=== PATIENT | male | born 1990 | race Caucasian/White ===

== ENCOUNTER 2018-08-11 21:38 | Emergency (ER) | payer SELFPAY ==
[~2018-08-11] VITALS: Ht 175.3 cm; Wt 163.3 kg
[2018-08-11] MEDS ORDERED: NS IV 1000 ML 1,000 ML IV ONE (22:49)
[2018-08-11] MEDS ORDERED: ACETAMINOPHEN 500 MG TAB (TYLENOL) PO STA (22:49)
[2018-08-11] MEDS ORDERED: HYDROcodone/APAP 7.5 MG/325 MG (LORTAB, LORCET PLUS) TABLET PO STA (22:49)
[2018-08-11 23:08] LABS: BASOPHILS % (AUTO) 0 % (0-10); EOSINOPHILS # (AUTO) 0.2 10^3/uL (0.0-0.3); EOSINOPHILS % (AUTO) 2 % (0-10); HEMATOCRIT 41 % (40-54); HEMOGLOBIN 12.4 G/DL (13.3-17.7); LYMPHOCYTES # (AUTO) 1.5 X 10^3 (1.0-4.0); LYMPHOCYTES % (AUTO) 14 % (12-44); MEAN CORPUSCULAR HEMOGLOBIN 23 PG (25-34); MEAN CORPUSCULAR HGB CONC 31 G/DL (32-36); MEAN CORPUSCULAR VOLUME 76 FL (80-99); MEAN PLATELET VOLUME 11.2 FL (7.4-10.4); MONOCYTES % (AUTO) 9 % (0-12); NEUTROPHILS # (AUTO) 7.9 X 10^3 (1.8-7.8); NEUTROPHILS % (AUTO) 74 % (42-75); PLATELET COUNT 290 10^3/uL (130-400); RED BLOOD COUNT 5.37 10^6/uL (4.35-5.85); RED CELL DISTRIBUTION WIDTH 15.4 % (10.0-14.5); WHITE BLOOD COUNT 10.6 10^3/uL (4.3-11.0)
--- NOTE | 2018-08-11 23:15 | ED General ---
General Chief Complaint: General Problems/Pain Stated Complaint: FELL AT HOME, LEGS HURTING Nursing Triage Note: Pt brought to ED in wheelchair. Pt reports slipping when getting out of the shower tonight and hitting middle of back on a shelf and toilet. Pt reports numbness and tingling from waist radiating down both knees. Pt denies urinary or bowel issues. During assessment this nurse noted pt has temperature of 101.1, and heart rate of 120. Nursing Sepsis Screen: No Definite Risk Source of Information: Patient Exam Limitations: No Limitations History of Present Illness Date Seen by Provider: Aug 11, 2018 Time Seen by Provider: 22:40 Initial Comments Here with report of multiple issues bed initial presenting complaint was that he had fallen after getting out of the shower and hit his back on the toilet. This is in the low thoracic upper lumbar region. States that he felt tingling down to his legs when that happened. That has happened intermittently since and was more often initially but now was settling down and only occurs sporadically every several minutes or so. On arrival, was found to be febrile and tachycardic and patient did not know that that was going on. He is a diabetic and currently is not on any meds as he has recently moved here and has reapplied for his Medicaid and so has not had any medicines. He is unsure what his blood sugars are. Denies numbness between his legs, bowel or bladder incontinence or difficulty with walking but does have some back spasms occasionally. Denies sore throat, runny nose, cough or vomiting. Location Injury Occurred: home Timing/Duration: 1 Hour (approximately one hour prior to arrival) Severity: Moderate Modifying Factors: improves with Rest Associated Systoms: No Chest Pain, No Cough, No Fever/Chills, No Nausea/ Vomiting, No Shortness of Air, No Weakness Allergies and Home Medications Allergies Coded Allergies: Penicillins (Verified Allergy, Unknown, 08/11/18) Patient Home Medication List Home Medication List Reviewed: Yes Review of Systems Review of Systems Constitutional: see HPI; No chills; fever EENTM: no symptoms reported Respiratory: no symptoms reported Cardiovascular: no symptoms reported; No chest pain Gastrointestinal: No abdominal pain, No nausea, No vomiting Genitourinary: no symptoms reported Musculoskeletal: back pain, muscle pain Psychiatric/Neurological: See HPI, Tingling; Denies Weakness All Other Systems Reviewed Negative Unless Noted: Yes Past Cptqhua-Mwxwjn-Votpsb Hx Past Med/Social Hx: Reviewed Nursing Past Med/Soc Hx Patient Social History Alcohol Use: Occasionally Uses Recreational Drug Use: No Smoking Status: Current Everyday Smoker Type Used: Cigarettes 2nd Hand Smoke Exposure: Yes Recent Foreign Travel: No Contact w/Someone Who Travel: No Recent Infectious Disease Expo: No Past Medical History Surgeries: No Respiratory: No Cardiac: No Neurological: No Genitourinary: No Gastrointestinal: No Musculoskeletal: No Endocrine: Yes Diabetes, Non-Insulin dep Family Medical History Reviewed Nursing Family Hx No Pertinent Family Hx Physical Exam Vital Signs Vital Signs - First Documented 08/11/18 22:16 Temp 101.1 Pulse 120 Resp 15 B/P (MAP) 148/112 (124) Pulse Ox 93 O2 Delivery Room Air Capillary Refill : Less Than 3 Seconds Height, Weight, BMI Height: 5'9.00" Weight: 360lbs. oz. 163.333824ww; BMI Method:Stated General Appearance: No Apparent Distress, WD/WN, Obese HEENT: PERRL/EOMI, Pharyngeal Erythema Neck: Full Range of Motion, Non Tender, Supple Respiratory: Lungs Clear, Normal Breath Sounds Cardiovascular: No Murmur, Tachycardia Gastrointestinal: Non Tender, Soft, Other (morbid obesity limits exam) Back: No CVA Tenderness, Other (tender in the area of the low thoracic spine. There is redness to this area. No obvious deformity) Extremity: Normal Inspection, Normal Range of Motion, Non Tender, No Calf Tenderness Neurologic/Psychiatric: Alert, Oriented x3, No Motor/Sensory Deficits, Other ( normal sensation to area between legs. Moves legs without difficulty. Gait is steady but limps a little with left leg reports that it's related to back pain) Skin: Warm/Dry, Erythema (lower thoracic as described above) Focused Exam Lactate Level 08/11/18 22:40: Lactic Acid Level 1.44 Lactic Acid Level Laboratory Tests Test 08/11/18 22:40 Lactic Acid Level 1.44 MMOL/L (0.50-2.00) Progress/Results/Core Measures Suspected Sepsis Recent Fever Within 48 Hours: Yes Infection Criteria Present: None New/Unexplained Altered Menta: No Sepsis Screen: No Definite Risk SIRS Temperature:101.1 Pulse: 120 Respiratory Rate: 15 Laboratory Tests 08/11/18 22:40: White Blood Count 10.6 Blood Pressure 148 /112 Mean: 124 08/11/18 22:40: Lactic Acid Level 1.44 Laboratory Tests 08/11/18 22:40: Creatinine 0.94, INR Comment 1.0, Platelet Count 290, Total Bilirubin 0.4 Results/Orders Lab Results Laboratory Tests Test 08/11/18 22:40 08/12/18 00:35 Range/Units White Blood Count 10.6 4.3-11.0 10^3/uL Red Blood Count 5.37 4.35-5.85 10^6/uL Hemoglobin 12.4 L 13.3-17.7 G/DL Hematocrit 41 40-54 % Mean Corpuscular Volume 76 L 80-99 FL Mean Corpuscular Hemoglobin 23 L 25-34 PG Mean Corpuscular Hemoglobin Concent 31 L 32-36 G/DL Red Cell Distribution Width 15.4 H 10.0-14.5 % Platelet Count 290 130-400 10^3/uL Mean Platelet Volume 11.2 H 7.4-10.4 FL Neutrophils (%) (Auto) 74 42-75 % Lymphocytes (%) (Auto) 14 12-44 % Monocytes (%) (Auto) 9 0-12 % Eosinophils (%) (Auto) 2 0-10 % Basophils (%) (Auto) 0 0-10 % Neutrophils # (Auto) 7.9 H 1.8-7.8 X 10^3 Lymphocytes # (Auto) 1.5 1.0-4.0 X 10^3 Monocytes # (Auto) 1.0 0.0-1.0 X 10^3 Eosinophils # (Auto) 0.2 0.0-0.3 10^3/uL Basophils # (Auto) 0.0 0.0-0.1 10^3/uL Prothrombin Time 13.4 12.2-14.7 SEC INR Comment 1.0 0.8-1.4 Activated Partial Thromboplast Time 28 24-35 SEC Sodium Level 134 L 135-145 MMOL/L Potassium Level 4.0 3.6-5.0 MMOL/L Chloride Level 97 L 98-107 MMOL/L Carbon Dioxide Level 27 21-32 MMOL/L Anion Gap 10 5-14 MMOL/L Blood Urea Nitrogen 9 7-18 MG/DL Creatinine 0.94 0.60-1.30 MG/DL Estimat Glomerular Filtration Rate > 60 BUN/Creatinine Ratio 10 Glucose Level 316 H 70-105 MG/DL Lactic Acid Level 1.44 0.50-2.00 MMOL/L Calcium Level 8.8 8.5-10.1 MG/DL Corrected Calcium 9.0 8.5-10.1 MG/DL Total Bilirubin 0.4 0.1-1.0 MG/DL Aspartate Amino Transf (AST/SGOT) 40 H 5-34 U/L Alanine Aminotransferase (ALT/SGPT) 54 0-55 U/L Alkaline Phosphatase 74 40-136 U/L Total Protein 7.3 6.4-8.2 GM/DL Albumin 3.7 3.2-4.5 GM/DL Urine Color YELLOW Urine Clarity CLEAR Urine pH 6 5-9 Urine Specific [place] 1.015 L 1.016-1.022 Urine Protein 2+ H NEGATIVE Urine Glucose (UA) 3+ H NEGATIVE Urine Ketones NEGATIVE NEGATIVE Urine Nitrite NEGATIVE NEGATIVE Urine Bilirubin NEGATIVE NEGATIVE Urine Urobilinogen 1 NORMAL MG/DL Urine Leukocyte Esterase 1+ H NEGATIVE Urine RBC (Auto) 1+ H NEGATIVE Urine RBC RARE /HPF Urine WBC 2-5 /HPF Urine Squamous Epithelial Cells 5-10 /HPF Urine Crystals NONE /LPF Urine Bacteria TRACE /HPF Urine Casts NONE /LPF Urine Mucus NEGATIVE /LPF Urine Culture Indicated NO My Orders Orders - AMBIKA WISEMAN MD Cbc With Automated Diff (08/11/18 22:49) Comprehensive Metabolic Panel (08/11/18 22:49) Blood Culture (08/11/18 22:49) Sputum Culture (08/11/18 22:49) Urinalysis (08/11/18 22:49) Urine Culture (08/11/18 22:49) Protime With Inr (08/11/18 22:49) Partial Thromboplastin Time (08/11/18 22:49) Chest 1 View, Ap/Pa Only (08/11/18 22:49) Saline Lock/Iv-Start (08/11/18 22:49) Vital Signs Adult Sepsis Patie Q15M (08/11/18 22:49) O2 (08/11/18 22:49) Remove Rings In Anticipation O (08/11/18 22:49) Lactic Acid Analyzer (08/11/18 22:49) Acetaminophen Tablet (Tylenol Tablet) (08/11/18 22:49) Hydrocodone/Apap 7.5/325 Tab (Lortab 7. (08/11/18 22:49) Ct Thoracic/Lumbar Spine Wo (08/11/18 22:49) Ns Iv 1000 Ml (Sodium Chloride 0.9%) (08/11/18 22:49) Metformin Xr Tablet (Glucophage Xr Table (08/12/18 00:58) Medications Given in ED Current Medications Medications Dose Ordered Sig/Felisha Route Start Time Stop Time Status Last Admin Dose Admin Sodium Chloride 1,000 ml @ 0 mls/hr Q0M ONCE IV 08/11/18 22:49 08/11/18 22:52 DC 08/11/18 23:16 0 MLS/HR Vital Signs/I&O 08/11/18 08/11/18 08/11/18 22:16 23:16 23:16 Temp 101.1 101.1 101.1 Pulse 120 Resp 15 B/P (MAP) 148/112 (124) Pulse Ox 93 O2 Delivery Room Air Capillary Refill : Less Than 3 Seconds Blood Pressure Mean: 124 Progress Note : Progress Note Seen and evaluated. IV, labs, blood cultures and lactic acid ordered. Normal saline 1 L bolus. Acetaminophen 500 mg by mouth as well as hydrocodone 7.5/325 one tab by mouth given. We will get a chest x-ray as well as CT of the thoracic or lumbar spine. UA ordered. Monitor patient. 0100: Heart rate improved. Metformin XR 500 mg by mouth initiated. We will give outpatient prescription for this. Patient is to follow-up with his doctor and this was discussed. Discharged home with return precautions. Patient verbalize understanding instructions and agreement with plan. Diagnostic Imaging Diagonstic Imaging: Xray Plain Films/CT/US/NM/MRI: chest Comments No acute findings Diagonstic Imaging: CT Plain Films/CT/US/NM/MRI: other (thoracic and lumbar spine) Comments Inferior endplate T4 compression deformity, age indeterminate. No evidence of lumbar fracture. Reviewed: Reviewed [place] Study Departure Impression Primary Impression: Fever Qualified Codes: R50.9 - Fever, unspecified Additional Impressions: Uncontrolled diabetes mellitus Qualified Codes: E11.65 - Type 2 diabetes mellitus with hyperglycemia Back contusion Qualified Codes: S20.229A - Contusion of unspecified back wall of thorax, initial encounter Disposition: HOME, SELF-CARE Condition: Stable Departure-Patient Inst. Decision time for Depature: 01:01 Referrals: NO,LOCAL PHYSICIAN (PCP) Primary Care Physician Patient Instructions: Contusion (DC), Diabetes Type 2 (DC), Fever, Adult (DC) Add. Discharge Instructions: All discharge instructions reviewed with patient and/or family. Voiced understanding. You may take ibuprofen 600 mg every 8 hours as needed for pain or fever. You may take Tylenol/acetaminophen 1000 mg every 6 hours as needed for fever or pain unless you're taking the prescribed pain medicine. If you're taking the prescribed pain medicine and then only take 1 [id number] Tylenol/ acetaminophen (500 mg) so that you do not exceed 4000 mg in a 24-hour period. Drink plenty of fluids. Return for worse pain, fever, vomiting, weakness, breathing problems, rales walking or going to the bathroom or other concerns as needed. Scripts Metformin HCl (Metformin HCl) 500 Mg Tablet 500 MG PO BID, #60 TAB 0 Refills Prov: AMBIKA WISEMAN MD 08/12/18 AMBIKA WISEMAN MD Aug 11, 2018 23:15
[2018-08-11 23:19] LABS: PROTHROMBIN TIME PATIENT 13.4 SEC (12.2-14.7)
[2018-08-11 23:28] LABS: ALANINE AMINOTRANSFERASE 54 U/L (0-55); ALBUMIN 3.7 GM/DL (3.2-4.5); ALKALINE PHOSPHATASE 74 U/L (40-136); BILIRUBIN,TOTAL 0.4 MG/DL (0.1-1.0); BUN/CREATININE RATIO 10; CALCIUM 8.8 MG/DL (8.5-10.1); CARBON DIOXIDE 27 MMOL/L (21-32); CHLORIDE 97 MMOL/L (98-107); CREATININE SERUM 0.94 MG/DL (0.60-1.30); GFR ESTIMATED > 60; GLUCOSE 316 MG/DL (70-105); SODIUM 134 MMOL/L (135-145); TOTAL PROTEIN 7.3 GM/DL (6.4-8.2)
[2018-08-12 00:47] LABS: BILIRUBIN,URINE NEGATIVE (NEGATIVE); COLOR,URINE YELLOW; GLUCOSE, URINE (UA) 3+ (NEGATIVE); KETONES,URINE NEGATIVE (NEGATIVE); LEUKOCYTE ESTERASE ,URINE 1+ (NEGATIVE); NITRITE,URINE NEGATIVE (NEGATIVE); PH,URINE 6 (5-9); PROTEIN,URINE 2+ (NEGATIVE); UROBILINOGEN,URINE 1 MG/DL (NORMAL)
[2018-08-12 00:48] LABS: BACTERIA,URINE TRACE /HPF; CLARITY,URINE CLEAR; RBC,URINE RARE /HPF
[2018-08-12] MEDS ORDERED: metFORMIN XR 500 MG (GLUCOPHAGE XR) TAB PO STA (00:58)
[2018-08-12] MEDS ORDERED: METF-397 PO (01:07)
[2018-08-12 01:15] VITALS: BP 145/97
--- NOTE | 2018-08-12 07:01 | Diagnostic Imaging Report ---
INDICATION: Cough, fever. TECHNIQUE: Single view chest 11:50 PM. CORRELATION STUDY: None FINDINGS: The heart size, mediastinal configuration and pulmonary vascularity are within normal limits. Somewhat limited depth of inspiration. Given this, the lung avina appear clear without definitive infiltrate. IMPRESSION: 1. No definite evidence for acute abnormality of the chest. However, if symptoms persists, short-term followup imaging is recommended for reassessment. Dictated by: Dictated on workstation # [id number]
--- NOTE | 2018-08-12 07:24 | Diagnostic Imaging Report ---
Indication: Status post fall, hit lower back, now with pain. Technique: Noncontrast CT imaging of the thoracic and lumbar spine with sagittal and coronal reformatted images. Findings: Overall assessment is limited and compromised owing to extensive soft tissue attenuation. In the thoracic spine, there is concave compression of the inferior T4 endplate, age-indeterminate. No retropulsion. The remaining thoracic vertebral body heights appear unremarkable and normal. Mild diffuse areas of disc space narrowing. Posterior limits appear to be intact. Definitive high-degree osseous narrowing of the canal does not appear to be suggested. In the lumbar spine, normal alignment present. The lumbar vertebral body heights are fairly well-maintained without definitive evidence for significant compression deformity. Posterior elements intact. Impression: 1. Thoracic spine with inferior T4 endplate compression deformities, age-indeterminate. 2. Lumbar spine demonstrates no suggestion of acute-appearing compression deformity. A preliminary report was provided by Mikael. Dictated by: Dictated on workstation # [id number]
== END 2018-08-12 01:15 | disposition home or self-care (01) ==
LOC: ER 21:41 → EDBD 21:41 → ER 08-12 01:15
DX: S30.0XXA Contusion of lower back and pelvis, initial encounter (principal); S20.229A Contusion of unspecified back wall of thorax, initial encounter; E11.9 Type 2 diabetes mellitus without complications; F17.210 Nicotine dependence, cigarettes, uncomplicated; Z91.14 Patient's other noncompliance with medication regimen; Z88.0 Allergy status to penicillin; W01.198A Fall on same level from slipping, tripping and stumbling with subsequent striking against other object, initial encounter; Y92.002 Bathroom of unspecified non-institutional (private) residence as the place of occurrence of the external cause
CPT/HCPCS: 36415; 71045; 72128; 72131; 80053; 81000; 83605; 85025; 85610; 85730; 87040; 87088

== ENCOUNTER 2018-08-16 20:48 | Emergency (ER) | payer SELFPAY ==
[~2018-08-16] VITALS: Ht 175.3 cm; Wt 181.4 kg
[~2018-08-16 20:48] MED LIST: METF-397 PO
--- NOTE | 2018-08-16 21:07 | ED Upper Extremity ---
General Chief Complaint: Upper Extremity Stated Complaint: INJURY TO ELBOW Source: patient Exam Limitations: no limitations History of Present Illness Date Seen by Provider: Aug 16, 2018 Time Seen by Provider: 21:06 Initial Comments To ER with right elbow pain after playing with younger siblings about 3-4 hours ago landed on this and felt an "pop". Onset: just prior to arrival Severity: moderate Allergies and Home Medications Allergies Coded Allergies: Penicillins (Verified Allergy, Unknown, 08/11/18) Home Medications Metformin HCl 500 Mg Tablet, 500 MG PO BID Prescribed by: AMBIKA WISEMAN on 08/12/18 0107 Patient Home Medication List Home Medication List Reviewed: Yes Review of Systems Constitutional: see HPI EENTM: see HPI Respiratory: no symptoms reported Cardiovascular: no symptoms reported Genitourinary: no symptoms reported Musculoskeletal: no symptoms reported Skin: see HPI Past Eiiplar-Sqfmfe-Jnbzfj Hx Patient Social History Alcohol Use: Occasionally Uses Recreational Drug Use: No Smoking Status: Current Everyday Smoker Type Used: Cigarettes 2nd Hand Smoke Exposure: Yes Recent Foreign Travel: No Contact w/Someone Who Travel: No Recent Hopitalizations: No Physical Abuse: No Sexual Abuse: No Mistreated: No Fear: No Seasonal Allergies Seasonal Allergies: No Past Medical History Surgeries: No Respiratory: No Asthma Cardiac: No Neurological: No Genitourinary: No Gastrointestinal: No Musculoskeletal: No Endocrine: Yes Hypothyroidsim, Diabetes, Non-Insulin dep HEENT: No Cancer: No Psychosocial: No Integumentary: No Blood Disorders: No Family Medical History No Pertinent Family Hx Physical Exam Vital Signs Capillary Refill : Height, Weight, BMI Height: 5'9.00" Weight: 360lbs. oz. 163.457252aq; BMI Method:Stated General Appearance: WD/WN, no apparent distress HEENT: PERRL/EOMI, normal ENT inspection Respiratory: no respiratory distress, no accessory muscle use Shoulder: normal inspection, non-tender Elbow/Forearm: normal inspection, Right, limited ROM, pain Hand: Right Neurologic/Tendon: normal sensation, normal motor functions Neurologic/Psychiatric: alert, normal mood/affect, oriented x 3 Skin: normal color, warm/dry Progress/Results/Core Measures Results/Orders My Orders Orders - STANFORD CORREA APRN Elbow, Right, 3 Views (08/16/18 21:03) Departure Impression Primary Impression: Elbow sprain Disposition: 01 HOME, SELF-CARE Condition: Stable Departure-Patient Inst. Decision time for Depature: 22:40 Referrals: NO,LOCAL PHYSICIAN (PCP/Family) Primary Care Physician Patient Instructions: Elbow Sprain (DC) Add. Discharge Instructions: 1. Return to ER for any concerns 2. Tylenol for pain 3. Follow-up with your doctor next week All discharge instructions reviewed with patient and/or family. Voiced understanding. STANFORD CORREA APRN Aug 16, 2018 21:07
[2018-08-16 22:49] VITALS: BP 186/78
--- NOTE | 2018-08-16 22:53 | Diagnostic Imaging Report ---
Examination: Right elbow, 3 views Indication: Traumatic elbow pain. Comparison: None. Findings: No fracture or acute osseous abnormality. Bony alignment is maintained. No significant arthritic change. No joint effusion. Impression: No acute fracture or dislocation. Dictated by: Dictated on workstation # [id number]
== END 2018-08-16 22:45 | disposition home or self-care (01) ==
LOC: EDUNIT# 20:48 → ER 20:49
DX: S53.401A Unspecified sprain of right elbow, initial encounter (principal); J45.909 Unspecified asthma, uncomplicated; E03.9 Hypothyroidism, unspecified; E11.9 Type 2 diabetes mellitus without complications; F17.210 Nicotine dependence, cigarettes, uncomplicated; Z88.0 Allergy status to penicillin; Z79.84 Long term (current) use of oral hypoglycemic drugs; X50.1XXA Overexertion from prolonged static or awkward postures, initial encounter
CPT/HCPCS: 73080

== ENCOUNTER 2018-08-29 17:56 | Inpatient (IN) | payer OTHER ==
[~2018-08-29] VITALS: Ht 175.3 cm; Wt 183.3 kg
[2018-08-29 18:39] LABS: BILIRUBIN,URINE NEGATIVE (NEGATIVE); CLARITY,URINE CLEAR; COLOR,URINE YELLOW; GLUCOSE, URINE (UA) 4+ (NEGATIVE); KETONES,URINE NEGATIVE (NEGATIVE); LEUKOCYTE ESTERASE ,URINE NEGATIVE (NEGATIVE); NITRITE,URINE NEGATIVE (NEGATIVE); PH,URINE 6.5 (5-9); PROTEIN,URINE NEGATIVE (NEGATIVE); UROBILINOGEN,URINE NORMAL (NORMAL)
[2018-08-29] MEDS ORDERED: NS IV 1000 ML 2,500 ML IV ONE (18:45)
--- NOTE | 2018-08-29 18:50 | ED General ---
General Chief Complaint: General Problems/Pain Stated Complaint: CONSTANTLY THIRSTY/WEAKNESS/CHEST HEAVINESS Nursing Triage Note: PT AMBULATED TO ROOM 6 WITH COMPLAINT OF INCREASED THIRST, INCREASED WEAKNESS, INCREASED URINATION, AND CHEST HEAVINESS. Nursing Sepsis Screen: No Definite Risk Source of Information: Patient, Other Exam Limitations: No Limitations History of Present Illness Date Seen by Provider: Aug 29, 2018 Time Seen by Provider: 18:37 Initial Comments The patient presents to ER by private conveyance with his significant other and chief complaint that for the past several days she's been drinking a lot of water or Gatorade trying to stay hydrated but having [place] constant urination. He said back in September he was told he might be diabetic and started on Glucophage. He's been taking it as he is described. He does not own a glucometer. He has not been following up with his doctor and Olaf because he recently moved to [place] of the trying to get his Medicaid switched over to [place]. He isn't having occasional nausea but not right now. He has pain in his upper abdomen on bilateral sides. No history of surgeries on his abdomen. No history of pancreatitis. Does not drink alcohol. Allergies and Home Medications Allergies Coded Allergies: Penicillins (Verified Allergy, Unknown, 08/11/18) Home Medications Metformin HCl 500 Mg Tablet, 500 MG PO BID Prescribed by: AMBIKA WISEMAN on 08/12/18 0107 Patient Home Medication List Home Medication List Reviewed: Yes Review of Systems Review of Systems Constitutional: No chills, No diaphoresis EENTM: No ear discharge, No ear pain Respiratory: No cough, No short of breath Cardiovascular: No chest pain, No edema Gastrointestinal: abdominal pain; No constipation, No diarrhea; nausea; No vomiting Genitourinary: No discharge, No dysuria Musculoskeletal: No back pain, No joint pain Past Ctabqqy-Hpotnu-Evvlmd Hx Patient Social History Alcohol Use: Denies Use Recreational Drug Use: No Smoking Status: Current Everyday Smoker Type Used: Cigarettes 2nd Hand Smoke Exposure: Yes Recent Foreign Travel: No Contact w/Someone Who Travel: No Recent Infectious Disease Expo: No Recent Hopitalizations: No Immunizations Up To Date Tetanus Booster (TDap): Unknown PED Vaccines UTD: Yes Seasonal Allergies Seasonal Allergies: No Past Medical History Surgeries: No Respiratory: No Asthma Cardiac: No Neurological: No Genitourinary: No Gastrointestinal: No Musculoskeletal: No Endocrine: Yes Hypothyroidsim, Diabetes, Non-Insulin dep HEENT: No Cancer: No Psychosocial: No Integumentary: No Blood Disorders: No Family Medical History No Pertinent Family Hx Physical Exam Vital Signs Vital Signs - First Documented 08/29/18 18:14 Pulse 109 Resp 25 B/P (MAP) 158/81 (106) Pulse Ox 92 O2 Delivery Room Air Capillary Refill : Less Than 3 Seconds Height, Weight, BMI Height: 5'9.00" Weight: 400lbs. oz. 181.310056xx; BMI Method:Stated General Appearance: Moderate Distress, Obese (morbidly) Eyes: Bilateral Eye Normal Inspection, Bilateral Eye PERRL, Bilateral Eye EOMI HEENT: PERRL/EOMI, TMs Normal, Normal ENT Inspection; No Pharynx Normal, No Moist Mucous Membranes Respiratory: Chest Non Tender, Lungs Clear, Normal Breath Sounds, No Accessory Muscle Use, No Respiratory Distress Cardiovascular: Regular Rate, Rhythm, No Edema, Normal Peripheral Pulses, Tachycardia (110) Gastrointestinal: Normal Bowel Sounds, Soft, Tenderness (epigastric, right and left upper quadrants diffuse tenderness) Neurologic/Psychiatric: Alert, Oriented x3, No Motor/Sensory Deficits Skin: Normal Color, Warm/Dry Progress/Results/Core Measures Suspected Sepsis Recent Fever Within 48 Hours: No Infection Criteria Present: None New/Unexplained Altered Menta: No Sepsis Screen: No Definite Risk SIRS Temperature: Pulse: 109 Respiratory Rate: 25 Laboratory Tests 08/29/18 18:45: White Blood Count 12.8H Blood Pressure 158 /81 Mean: 106 Laboratory Tests 08/29/18 18:45: Creatinine 1.90H, Platelet Count 265, Total Bilirubin 0.6 Results/Orders Lab Results Laboratory Tests Test 08/29/18 18:32 08/29/18 18:33 08/29/18 18:45 08/29/18 20:58 Range/Units Glucometer > 600 *H > 600 *H 70-110 MG/DL Urine Color YELLOW Urine Clarity CLEAR Urine pH 6.5 5-9 Urine Specific [place]te 1.005 L 1.016-1.022 Urine Protein NEGATIVE NEGATIVE Urine Glucose (UA) 4+ H NEGATIVE Urine Ketones NEGATIVE NEGATIVE Urine Nitrite NEGATIVE NEGATIVE Urine Bilirubin NEGATIVE NEGATIVE Urine Urobilinogen NORMAL NORMAL MG/DL Urine Leukocyte Esterase NEGATIVE NEGATIVE Urine RBC (Auto) NEGATIVE NEGATIVE Urine RBC NONE /HPF Urine WBC RARE /HPF Urine Squamous Epithelial Cells 0-2 /HPF Urine Crystals NONE /LPF Urine Bacteria NEGATIVE /HPF Urine Casts NONE /LPF Urine Mucus NEGATIVE /LPF Urine Culture Indicated NO White Blood Count 12.8 H 4.3-11.0 10^3/uL Red Blood Count 5.21 4.35-5.85 10^6/uL Hemoglobin 12.4 L 13.3-17.7 G/DL Hematocrit 39 L 40-54 % Mean Corpuscular Volume 75 L 80-99 FL Mean Corpuscular Hemoglobin 24 L 25-34 PG Mean Corpuscular Hemoglobin Concent 32 32-36 G/DL Red Cell Distribution Width 17.2 H 10.0-14.5 % Platelet Count 265 130-400 10^3/uL Mean Platelet Volume 12.8 H 7.4-10.4 FL Neutrophils (%) (Auto) 81 H 42-75 % Lymphocytes (%) (Auto) 12 12-44 % Monocytes (%) (Auto) 5 0-12 % Eosinophils (%) (Auto) 1 0-10 % Basophils (%) (Auto) 0 0-10 % Neutrophils # (Auto) 10.3 H 1.8-7.8 X 10^3 Lymphocytes # (Auto) 1.6 1.0-4.0 X 10^3 Monocytes # (Auto) 0.7 0.0-1.0 X 10^3 Eosinophils # (Auto) 0.1 0.0-0.3 10^3/uL Basophils # (Auto) 0.0 0.0-0.1 10^3/uL Sodium Level 114 *L 135-145 MMOL/L Potassium Level 5.2 H 3.6-5.0 MMOL/L Chloride Level 77 L 98-107 MMOL/L Carbon Dioxide Level 22 21-32 MMOL/L Anion Gap 15 H 5-14 MMOL/L Blood Urea Nitrogen 9 7-18 MG/DL Creatinine 1.90 H 0.60-1.30 MG/DL Estimat Glomerular Filtration Rate 42 BUN/Creatinine Ratio 5 Glucose Level 1340 *H 70-105 MG/DL Calcium Level 8.7 8.5-10.1 MG/DL Corrected Calcium 8.8 8.5-10.1 MG/DL Magnesium Level 1.9 1.8-2.4 MG/DL Total Bilirubin 0.6 0.1-1.0 MG/DL Aspartate Amino Transf (AST/SGOT) 14 5-34 U/L Alanine Aminotransferase (ALT/SGPT) 26 0-55 U/L Alkaline Phosphatase 95 40-136 U/L Troponin I < 0.30 <0.30 NG/ML Total Protein 7.3 6.4-8.2 GM/DL Albumin 3.9 3.2-4.5 GM/DL Amylase Level 20 L 25-125 U/L Lipase 46 8-78 U/L Serum Alcohol < 10 <10 MG/DL My Orders Orders - CISCO TERRY Accucheck Stat ONCE (08/29/18 18:16) Ua Culture If Indicated (08/29/18 18:16) Ekg Tracing (08/29/18 18:25) Continuous Ekg Monitoring (08/29/18 18:25) Alcohol (08/29/18 18:43) Amylase (08/29/18 18:43) Cbc With Automated Diff (08/29/18 18:43) Comprehensive Metabolic Panel (08/29/18 18:43) Drug Screen Stat (Urine) (08/29/18 18:43) Lipase (08/29/18 18:43) Magnesium (08/29/18 18:43) Troponin I (08/29/18 18:43) Saline Lock/Iv-Start (08/29/18 18:43) Ns Iv 1000 Ml (Sodium Chloride 0.9%) (08/29/18 18:45) Fentanyl Injection (Sublimaze Injection (08/29/18 19:00) Insulin (Regular) Human (Humulin R (Per (08/29/18 19:30) Blood Culture (08/29/18 19:36) Medications Given in ED Current Medications Medications Dose Ordered Sig/Felisha Route Start Time Stop Time Status Last Admin Dose Admin Insulin Human Regular 10 unit ONCE ONCE IV 08/29/18 19:30 08/29/18 19:31 DC 08/29/18 20:03 10 UNIT Sodium Chloride 2,500 ml @ 2,500 mls/hr ONCE ONCE IV 08/29/18 18:45 08/29/18 19:44 DC 08/29/18 18:56 2,500 MLS/HR Vital Signs/I&O 08/29/18 18:14 Pulse 109 Resp 25 B/P (MAP) 158/81 (106) Pulse Ox 92 O2 Delivery Room Air Capillary Refill : Less Than 3 Seconds Blood Pressure Mean: 106 Point of Care Testing Finger Stick Blood Glucose: 600 Blood Glucose Action Taken: DR NOTIFIED Progress Note : Time: 19:42 Progress Note On reassessment the patient is dipping his oxygen sats in the 88% 89%. He has a history of sleep apnea which I suspect also has a component of obesity hypoventilation syndrome. He's not having any nausea or emesis pain is better sorted hold off given and the fentanyl. We must amoxicillin brought him up to the mid 90s. We'll put him on CPAP upstairs. We will initiate 10 units of regular insulin IV since his potassium is 5.2. We've initiated a 30 mL/kg bolus at ideal body weight adjusted for a total of 2500 cc. ECG Initial ECG Impression Date: Aug 29, 2018 Initial ECG Impression Time: 18:34 Initial ECG Rate: 97 Initial ECG Rhythm: Normal Sinus Initial ECG Intervals: Normal Initial ECG Impression: Normal Initial ECG Comparisson: No Previous ECG Available Comment No ST changes. Departure Communication (Admissions) Time/Spoke to Admitting Phy: 19:30 Discussed case lab imaging findings and Dr. Gonzlaez agrees to accept the patient to the ICU for insulin drip. Impression Primary Impression: Uncontrolled type 2 diabetes mellitus with hyperosmolar nonketotic hyperglycemia Additional Impressions: Hyponatremia Obesity hypoventilation syndrome Disposition: 09 ADMITTED INPATIENT Condition: Critical Admissions Decision to Admit Reason: Admit from ER (General) Decision to Admit/Date: Aug 29, 2018 Time/Decision to Admit Time: 19:48 Departure-Patient Inst. Referrals: NO,LOCAL PHYSICIAN (PCP/Family) Primary Care Physician CISCO TERRY Aug 29, 2018 18:50
[2018-08-29 18:55] LABS: BASOPHILS % (AUTO) 0 % (0-10); EOSINOPHILS # (AUTO) 0.1 10^3/uL (0.0-0.3); EOSINOPHILS % (AUTO) 1 % (0-10); HEMATOCRIT 39 % (40-54); HEMOGLOBIN 12.4 G/DL (13.3-17.7); LYMPHOCYTES # (AUTO) 1.6 X 10^3 (1.0-4.0); LYMPHOCYTES % (AUTO) 12 % (12-44); MEAN CORPUSCULAR HEMOGLOBIN 24 PG (25-34); MEAN CORPUSCULAR HGB CONC 32 G/DL (32-36); MEAN CORPUSCULAR VOLUME 75 FL (80-99); MEAN PLATELET VOLUME 12.8 FL (7.4-10.4); MONOCYTES # (AUTO) 0.7 X 10^3 (0.0-1.0); MONOCYTES % (AUTO) 5 % (0-12); NEUTROPHILS # (AUTO) 10.3 X 10^3 (1.8-7.8); NEUTROPHILS % (AUTO) 81 % (42-75); PLATELET COUNT 265 10^3/uL (130-400); RED BLOOD COUNT 5.21 10^6/uL (4.35-5.85); RED CELL DISTRIBUTION WIDTH 17.2 % (10.0-14.5); WHITE BLOOD COUNT 12.8 10^3/uL (4.3-11.0)
[2018-08-29 18:56] LABS: BACTERIA,URINE NEGATIVE /HPF; SQUAMOUS EPITHELIAL CELL,UR 0-2 /HPF; WBC,URINE RARE /HPF
[2018-08-29] MEDS ORDERED: fentaNYL INJECTION 100 MCG/2 ML AMP IVP ONE (19:00)
[2018-08-29 19:12] LABS: ALANINE AMINOTRANSFERASE 26 U/L (0-55); ALBUMIN 3.9 GM/DL (3.2-4.5); ALKALINE PHOSPHATASE 95 U/L (40-136); AMYLASE 20 U/L (25-125); BILIRUBIN,TOTAL 0.6 MG/DL (0.1-1.0); BUN/CREATININE RATIO 5; CALCIUM 8.7 MG/DL (8.5-10.1); CARBON DIOXIDE 22 MMOL/L (21-32); CHLORIDE 77 MMOL/L (98-107); GFR ESTIMATED 42; LIPASE 46 U/L (8-78); MAGNESIUM 1.9 MG/DL (1.8-2.4); POTASSIUM 5.2 MMOL/L (3.6-5.0); TOTAL PROTEIN 7.3 GM/DL (6.4-8.2)
[2018-08-29 19:26] LABS: GLUCOSE 1340 MG/DL (70-105); SODIUM 114 MMOL/L (135-145)
[2018-08-29] MEDS ORDERED: inSUlin (REGULAR) HUMAN 1 UNIT/0.01 ML (CHARGE PER UNIT) IV ONE (19:30)
[2018-08-29 21:45] VITALS: BP 158/85
[2018-08-29 22:00] VITALS: BP 158/85
[2018-08-29] MEDS ORDERED: ONDANSETRON 4 MG/2 ML (SDV) Z0FRAN IV PRN (22:00)
[2018-08-29] MEDS ORDERED: REGULAR inSUlin DRIP 250 UNITS/NS 250 ML IV SCH ×2 (22:00)
[2018-08-29] MEDS ORDERED: NS IV 1000 ML X 1 WIDE OPEN IV ONE (22:00)
[2018-08-29] MEDS ORDERED: fentaNYL INJECTION 100 MCG/2 ML AMP IV PRN (22:00)
[2018-08-29] MEDS ORDERED: PROMETHAZINE INJ 25 MG/ML (PHENERGAN) AMP IV PRN (22:00)
[2018-08-29] MEDS ORDERED: HYDROcodone/APAP 5 MG/325 MG (LORTAB) TAB PO PRN (22:00)
[2018-08-29] MEDS ORDERED: NORMAL SALINE 250 ML ONE (22:14)
[2018-08-29] MEDS ORDERED: inSUlin (REGULAR) HUMAN 1 UNIT/0.01 ML (CHARGE PER UNIT) ONE (22:15)
[2018-08-29] MEDS ORDERED: POTASSIUM CL 10MEQ/50ML IVPB 50 ML IV ONE (22:16)
[2018-08-29] MEDS: 1/2 NS W/KCL 20 MEQ/L 1,000 ML IV SCH (22:26)
[2018-08-29] MEDS: 1/2 NS IV SOLUTION 1,000 ML IV SCH (22:27)
[2018-08-29] MEDS: D5 1/2 NS IV 1,000 ML IV SCH (22:27)
[2018-08-29 22:47] LABS: CALCIUM 8.9 MG/DL (8.5-10.1); CREATININE SERUM 1.55 MG/DL (0.60-1.30); POTASSIUM 4.4 MMOL/L (3.6-5.0)
[2018-08-29 23:00] VITALS: BP 151/108
[2018-08-30] VITALS (24 sets, daily range): BP systolic 96–161; BP diastolic 53–103
[2018-08-30 00:25] LABS: BUN/CREATININE RATIO 6; CALCIUM 8.5 MG/DL (8.5-10.1); CARBON DIOXIDE 23 MMOL/L (21-32); CHLORIDE 93 MMOL/L (98-107); CREATININE SERUM 1.29 MG/DL (0.60-1.30); GFR ESTIMATED > 60; POTASSIUM 3.9 MMOL/L (3.6-5.0); SODIUM 130 MMOL/L (135-145)
[2018-08-30 00:28] LABS: GLUCOSE 693 MG/DL (70-105)
[2018-08-30] MEDS ORDERED: POTASSIUM CL 10MEQ/50ML IVPB 100 ML IV ONE (00:38)
[2018-08-30] MEDS: POTASSIUM CL 10MEQ/50ML IVPB 50 ML IV SCH ×5 (00:53→20:02)
[2018-08-30] MEDS: 1/2 NS W/KCL 20 MEQ/L 1,000 ML IV SCH ×6 (02:35→23:23)
[2018-08-30] MEDS: 1/2 NS IV SOLUTION 1,000 ML IV SCH ×6 (02:35→20:41)
[2018-08-30] MEDS: D5 1/2 NS IV 1,000 ML IV SCH ×6 (02:36→23:23)
[2018-08-30 03:45] LABS: BASOPHILS # (AUTO) 0.1 10^3/uL (0.0-0.1); BASOPHILS % (AUTO) 0 % (0-10); EOSINOPHILS # (AUTO) 0.4 10^3/uL (0.0-0.3); EOSINOPHILS % (AUTO) 3 % (0-10); HEMATOCRIT 36 % (40-54); HEMOGLOBIN 12.1 G/DL (13.3-17.7); LYMPHOCYTES # (AUTO) 3.5 X 10^3 (1.0-4.0); LYMPHOCYTES % (AUTO) 27 % (12-44); MEAN CORPUSCULAR HEMOGLOBIN 24 PG (25-34); MEAN CORPUSCULAR HGB CONC 33 G/DL (32-36); MEAN CORPUSCULAR VOLUME 73 FL (80-99); MEAN PLATELET VOLUME 12.2 FL (7.4-10.4); MONOCYTES # (AUTO) 0.9 X 10^3 (0.0-1.0); MONOCYTES % (AUTO) 7 % (0-12); NEUTROPHILS # (AUTO) 8.3 X 10^3 (1.8-7.8); NEUTROPHILS % (AUTO) 63 % (42-75); PLATELET COUNT 240 10^3/uL (130-400); RED BLOOD COUNT 4.99 10^6/uL (4.35-5.85); RED CELL DISTRIBUTION WIDTH 15.9 % (10.0-14.5); WHITE BLOOD COUNT 13.2 10^3/uL (4.3-11.0)
[2018-08-30 04:26] LABS: BUN/CREATININE RATIO 6; CALCIUM 8.3 MG/DL (8.5-10.1); CARBON DIOXIDE 24 MMOL/L (21-32); CHLORIDE 97 MMOL/L (98-107); CREATININE SERUM 0.99 MG/DL (0.60-1.30); GFR ESTIMATED > 60; MAGNESIUM 2.1 MG/DL (1.8-2.4); PHOSPHORUS 3.6 MG/DL (2.3-4.7); POTASSIUM 3.7 MMOL/L (3.6-5.0); SODIUM 134 MMOL/L (135-145)
[2018-08-30 04:28] LABS: GLUCOSE 431 MG/DL (70-105)
[2018-08-30] MEDS: MAGNESIUM 1 GM/100 ML IVPB 100 ML IV SCH (04:30)
[2018-08-30] MEDS: KCL 20 MEQ TAB (K-DUR) PO SCH (04:31)
[2018-08-30] MEDS: ACETAMINOPHEN 325 MG TABLET PO PRN ×2 (08:06→18:42)
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
[2018-08-30] MEDS ORDERED: INSU100I29 SQ (10:42)
[2018-08-30] MEDS ORDERED: INSU100I23 SQ (10:42)
[2018-08-30 17:09] LABS: AMPHETAMINE SCREEN, URINE NEGATIVE (NEGATIVE); BARBITURATE SCREEN URINE NEGATIVE (NEGATIVE); BENZODIAZEPINES SCREEN URINE NEGATIVE (NEGATIVE); CANNABINOID SCREEN, URINE NEGATIVE (NEGATIVE); COCAINE SCREEN URINE NEGATIVE (NEGATIVE); METHADONE STAT NEGATIVE (NEGATIVE); METHAMPHETAMINE SCREEN URINE S NEGATIVE (NEGATIVE); OPIATE SCREEN URINE NEGATIVE (NEGATIVE); OXYCODONE STAT NEGATIVE (NEGATIVE); PROPOXYPHENE STAT NEGATIVE (NEGATIVE); TRICYCLIC ANTIDEPRESSANTS SCRE NEGATIVE (NEGATIVE)
[2018-08-30 18:17] LABS: BUN/CREATININE RATIO 8; CALCIUM 7.8 MG/DL (8.5-10.1); CARBON DIOXIDE 20 MMOL/L (21-32); CHLORIDE 100 MMOL/L (98-107); GFR ESTIMATED > 60; GLUCOSE 266 MG/DL (70-105); POTASSIUM 3.8 MMOL/L (3.6-5.0); SODIUM 131 MMOL/L (135-145)
[2018-08-30] MEDS: metFORMIN 500 MG (GLUCOPHAGE) TAB PO SCH (18:42)
[2018-08-31] VITALS (12 sets, daily range): BP systolic 117–165; BP diastolic 55–101
[2018-08-31] MEDS ORDERED: NS IV 1000 ML 1,000 ML IV SCH (00:10)
[2018-08-31] MEDS ORDERED: inSUlin REGULAR TPN/DRIP ONLY 250 UNITS in NORMAL SALINE 250 ML IV SCH (00:15)
[2018-08-31] MEDS ORDERED: D5 NS 1000 ML IV SOLUTION 1,000 ML IV ONE (00:15)
[2018-08-31] MEDS ORDERED: D5 NS 1000 ML IV SOLUTION 1,000 ML IV SCH (00:30)
[2018-08-31 02:41] LABS: BASOPHILS % (AUTO) 0 % (0-10); EOSINOPHILS # (AUTO) 0.4 10^3/uL (0.0-0.3); EOSINOPHILS % (AUTO) 4 % (0-10); HEMATOCRIT 36 % (40-54); HEMOGLOBIN 11.6 G/DL (13.3-17.7); LYMPHOCYTES # (AUTO) 2.6 X 10^3 (1.0-4.0); LYMPHOCYTES % (AUTO) 23 % (12-44); MEAN CORPUSCULAR HEMOGLOBIN 24 PG (25-34); MEAN CORPUSCULAR HGB CONC 32 G/DL (32-36); MEAN CORPUSCULAR VOLUME 76 FL (80-99); MEAN PLATELET VOLUME 12.3 FL (7.4-10.4); MONOCYTES # (AUTO) 0.6 X 10^3 (0.0-1.0); MONOCYTES % (AUTO) 5 % (0-12); NEUTROPHILS # (AUTO) 7.3 X 10^3 (1.8-7.8); NEUTROPHILS % (AUTO) 67 % (42-75); PLATELET COUNT 230 10^3/uL (130-400); RED BLOOD COUNT 4.81 10^6/uL (4.35-5.85); RED CELL DISTRIBUTION WIDTH 16.2 % (10.0-14.5); WHITE BLOOD COUNT 10.9 10^3/uL (4.3-11.0)
[2018-08-31 02:58] LABS: BUN/CREATININE RATIO 13; CALCIUM 8.2 MG/DL (8.5-10.1); CARBON DIOXIDE 21 MMOL/L (21-32); CHLORIDE 104 MMOL/L (98-107); CREATININE SERUM 0.88 MG/DL (0.60-1.30); GFR ESTIMATED > 60; GLUCOSE 186 MG/DL (70-105); MAGNESIUM 1.8 MG/DL (1.8-2.4); PHOSPHORUS 2.3 MG/DL (2.3-4.7); POTASSIUM 3.5 MMOL/L (3.6-5.0); SODIUM 136 MMOL/L (135-145)
[2018-08-31] MEDS: MAGNESIUM 1 GM/100 ML IVPB 100 ML IV SCH (03:27)
[2018-08-31] MEDS: KCL 20 MEQ TAB (K-DUR) PO SCH ×2 (03:29→07:57)
[2018-08-31] MEDS ORDERED: KCL 20 MEQ TAB (K-DUR) PO ONE (03:30)
[2018-08-31] MEDS ORDERED: inSUlin DETERMIR 1 UNIT/0.01 ML (LEVEMIR) CHARGE PER UNIT SQ ONE (04:16)
[2018-08-31] MEDS: inSUlin ASPART (NovoLOG) 1 UNIT/0.01 ML (CHARGE PER UNIT) SC SCH ×2 (06:38→11:25)
[2018-08-31] MEDS: metFORMIN 500 MG (GLUCOPHAGE) TAB PO SCH (06:47)
[2018-08-31] MEDS: inSUlin ASPART (NovoLOG) 1 UNIT/0.01 ML (CHARGE PER UNIT) SQ SCH ×2 (06:48→11:25)
[2018-08-31] MEDS ORDERED: inSUlin DETERMIR 1 UNIT/0.01 ML (LEVEMIR) CHARGE PER UNIT SQ SCH (09:00)
[2018-08-31] MEDS ORDERED: FLU QUADRIvalent (5+ YOA) 2018-2019 (AFLURIA) 0.5 ML IM ONE (09:59)
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
--- NOTE | 2018-08-31 11:51 | Progress Note-Hospitalist ---
Progress Note Addendum Progress Notes/Assess & Plan Date Seen 08/31/18 Time Seen by Provider: 09:30 Diagonsis/Assessment & Plan Patient went to sleep and developed hypoxia with O2 sats in the 50s and had bradycardia with rate down into the 40s with sinus pause of 3-4 seconds. As such discharge for today was canceled Dr. Welch be consult it and as well as Dr. Thomas and try and set the patient up for outpatient CPAP or BiPAP. RUSSELL YBARRA MD Aug 31, 2018 11:51
--- NOTE | 2018-08-31 14:11 | Consultation-Cardiology ---
HPI-Cardiology Cardiology Consultation Date of Consultation 08/31/18 Date of Admission Time Seen by Provider: 14:06 Indication: bradycardia, sinus pause HPI 28 years old gentleman with history of resistant hypertension, morbid obesity and recently diagnosed with sleep apnea and scheduled to start on a BiPAP machine. He moved to our area recently and was admitted to the hospital with hyperosmolar hyperglycemia. Recently diagnosed with diabetes mellitus. Patient was getting ready to go home when he was noted to have sinus pause and bradycardia while he was taking a nap during the day the heart rate in the 30s and pauses up to 3 seconds. He denied any previous history of syncope. No palpitation. No previous cardiac history other than his hypertension. He reported that he had an echocardiogram done recently in [facility], anxious to go home due to court date. He is feeling well. Ambulating well. No new complaint Home Medications & Allergies Allergies: Coded Allergies: Penicillins (Verified Allergy, Unknown, 08/11/18) Home Medication List Reviewed: Yes [id number]-Ncfvhd-Kiwhnv Hx Patient Social History Marital Status: single Employed/Student: unemployed Alcohol Use: Denies Use Recreational Drug Use: No Smoking Status: Current Everyday Smoker Type Used: Cigarettes 2nd Hand Smoke Exposure: Yes Recent Foreign Travel: No Recent Infectious Disease Expo: No Recent Hopitalizations: No Physical Abuse Screen: No Sexual Abuse: No Immunizations Up To Date Tetanus Booster (TDap): Unknown Past Medical History passed medical history as described below Family Medical History Significant Family History: No Pertinent Family Hx Family History: Osteoporosis Seizure disorder G8 SISTER, Onset:Unknown Review of Systems Constitutional: see HPI, malaise, weakness EENTM: see HPI, no symptoms reported Respiratory: see HPI; No cough; dyspnea on exertion; No hemoptysis, No orthopnea, No phlegm, No short of breath, No stridor, No wheezing, No other Cardiovascular: see HPI; No chest pain; edema; No Hx of Intervention, No palpitations, No syncope, No vascular heart diseas, No other Gastrointestinal: no symptoms reported, see HPI Genitourinary: no symptoms reported, see HPI Musculoskeletal: no symptoms reported, see HPI Skin: no symptoms reported, see HPI Psychiatric/Neurological: No Symptoms Reported, See HPI Reviewed Test Results Reviewed Test Results Lab Laboratory Tests Test 08/30/18 14:37 08/30/18 15:51 08/30/18 16:47 08/30/18 17:25 Range/Units Glucometer 375 H 305 H 277 H 266 H 70-110 MG/DL Test 08/30/18 17:50 08/30/18 18:38 08/30/18 19:55 08/30/18 21:26 Range/Units Sodium Level 131 L 135-145 MMOL/L Potassium Level 3.8 3.6-5.0 MMOL/L Chloride Level 100 98-107 MMOL/L Carbon Dioxide Level 20 L 21-32 MMOL/L Anion Gap 11 5-14 MMOL/L Blood Urea Nitrogen 7 7-18 MG/DL Creatinine 0.90 0.60-1.30 MG/DL Estimat Glomerular Filtration Rate > 60 BUN/Creatinine Ratio 8 Glucose Level 266 H 70-105 MG/DL Calcium Level 7.8 L 8.5-10.1 MG/DL Glucometer 219 H 248 H 220 H 70-110 MG/DL Test 08/30/18 22:28 08/30/18 23:31 08/31/18 00:13 08/31/18 01:28 Range/Units Glucometer 144 H 110 181 H 202 H 70-110 MG/DL Test 08/31/18 02:32 08/31/18 02:33 08/31/18 03:22 08/31/18 06:31 Range/Units White Blood Count 10.9 4.3-11.0 10^3/uL Red Blood Count 4.81 4.35-5.85 10^6/uL Hemoglobin 11.6 L 13.3-17.7 G/DL Hematocrit 36 L 40-54 % Mean Corpuscular Volume 76 L 80-99 FL Mean Corpuscular Hemoglobin 24 L 25-34 PG Mean Corpuscular Hemoglobin Concent 32 32-36 G/DL Red Cell Distribution Width 16.2 H 10.0-14.5 % Platelet Count 230 130-400 10^3/uL Mean Platelet Volume 12.3 H 7.4-10.4 FL Neutrophils (%) (Auto) 67 42-75 % Lymphocytes (%) (Auto) 23 12-44 % Monocytes (%) (Auto) 5 0-12 % Eosinophils (%) (Auto) 4 0-10 % Basophils (%) (Auto) 0 0-10 % Neutrophils # (Auto) 7.3 1.8-7.8 X 10^3 Lymphocytes # (Auto) 2.6 1.0-4.0 X 10^3 Monocytes # (Auto) 0.6 0.0-1.0 X 10^3 Eosinophils # (Auto) 0.4 H 0.0-0.3 10^3/uL Basophils # (Auto) 0.0 0.0-0.1 10^3/uL Sodium Level 136 135-145 MMOL/L Potassium Level 3.5 L 3.6-5.0 MMOL/L Chloride Level 104 98-107 MMOL/L Carbon Dioxide Level 21 21-32 MMOL/L Anion Gap 11 5-14 MMOL/L Blood Urea Nitrogen 11 7-18 MG/DL Creatinine 0.88 0.60-1.30 MG/DL Estimat Glomerular Filtration Rate > 60 BUN/Creatinine Ratio 13 Glucose Level 186 H 70-105 MG/DL Calcium Level 8.2 L 8.5-10.1 MG/DL Phosphorus Level 2.3 2.3-4.7 MG/DL Magnesium Level 1.8 1.8-2.4 MG/DL Glucometer 178 H 115 H 300 H 70-110 MG/DL Test 08/31/18 09:47 08/31/18 11:17 Range/Units Glucometer 336 H 318 H 70-110 MG/DL Physical Exam Vital Signs Vital Signs - First Documented 08/29/18 08/29/18 08/29/18 08/30/18 18:14 21:44 21:45 03:45 Temp 98.2 Pulse 109 Resp 25 B/P (MAP) 158/81 (106) Pulse Ox 92 O2 Delivery Room Air O2 Flow Rate 2.00 FiO2 35 Capillary Refill : Less Than 3 Seconds Height, Weight, BMI Height: 5'9.00" Weight: 404lbs. 9.0oz. [id number]; 57.5 BMI Method:Stated General Appearance: No Apparent Distress, WD/WN Eyes: Bilateral Eye Normal Inspection, Bilateral Eye PERRL, Bilateral Eye EOMI HEENT: PERRL/EOMI, TMs Normal, Normal ENT Inspection, Pharynx Normal Neck: Full Range of Motion, Normal Inspection, Non Tender, Supple, Carotid Bruit Respiratory: Chest Non Tender, Lungs Clear, Normal Breath Sounds, No Accessory Muscle Use, No Respiratory Distress Cardiovascular: Regular Rate, Rhythm, No Edema, No Gallop, No JVD, No Murmur, Normal Peripheral Pulses Gastrointestinal: Normal Bowel Sounds, No Organomegaly, No Pulsatile Mass, Non Tender, Soft Back: Normal Inspection, No CVA Tenderness, No Vertebral Tenderness Extremity: Normal Capillary Refill, Normal Inspection, Normal Range of Motion, Non Tender, No Calf Tenderness, No Pedal Edema Neurologic/Psychiatric: Alert, Oriented x3, No Motor/Sensory Deficits, Normal Mood/Affect Skin: Normal Color, Warm/Dry Lymphatic: No Adenopathy A/P-Cardiology Admission Diagnosis Sick sinus syndrome Hypertension Diabetes mellitus Obstructive sleep apnea Assessment/Plan Sick sinus syndrome with sinus pauses, heart rate in the 30s and pauses up to 3 seconds while asleep, most probably secondary to sleep apnea. He denied any syncope in the past. I will arrange for Holter monitor evaluation as an outpatient. He had an echocardiogram done recently in [facility], I'll try to obtain a copy of the report. Hypertension, poorly controlled. I will add lisinopril and monitor blood pressure Hyperglycemia, diabetes mellitus, newly diagnosed, managed by primary care physician Morbid obesity, BMI 59, we had a long discussion about weight loss and exercise Obstructive sleep apnea, diagnosed recently, patient is scheduled to parts picker BiPAP machine, he reported that he will pick it up later this week when he have the money Tobaccoism, smokes about half pack a day. Educated in length on smoking cessation. Family history of heart disease Okay for discharge from cardiology standpoint and follow-up as an outpatient Clinical Quality Measures DVT/VTE Risk/Contraindication: Risk Factor Score Per Nursin RFS Level Per Nursing on Admit: 2=Moderate ALLEN DOUGLAS MD Aug 31, 2018 14:11
[2018-08-31] MEDS ORDERED: LISI10TA2 PO (14:13)
[2018-08-31] MEDS ORDERED: lisINopril 10 MG (PRINIVIL) TABLET PO NR (14:15)
[2018-09-01] MEDS ORDERED: lisINopril 10 MG (PRINIVIL) TABLET PO SCH (09:00)
== END 2018-08-31 14:43 | disposition home or self-care (01) | DRG 638 ==
LOC: EDUNIT# 17:56 → ER 17:57 → ICU 19:30 → EDPENDDISTM 08-31 14:00
PROVIDERS: ADMIT Internal Medicine; ATTEND Internal Medicine
DX: E11.00 Type 2 diabetes mellitus with hyperosmolarity without nonketotic hyperglycemic-hyperosmolar coma (NKHHC) (principal); Z68.43 Body mass index [BMI] 50.0-59.9, adult; I49.5 Sick sinus syndrome; E66.2 Morbid (severe) obesity with alveolar hypoventilation; E87.1 Hypo-osmolality and hyponatremia; R09.02 Hypoxemia; I10 Essential (primary) hypertension; E11.65 Type 2 diabetes mellitus with hyperglycemia; F17.210 Nicotine dependence, cigarettes, uncomplicated; Z82.49 Family history of ischemic heart disease and other diseases of the circulatory system; M51.36 Other intervertebral disc degeneration, lumbar region; E88.81 Metabolic syndrome and other insulin resistance; D50.9 Iron deficiency anemia, unspecified; F31.9 Bipolar disorder, unspecified; F41.9 Anxiety disorder, unspecified; E03.9 Hypothyroidism, unspecified
CPT/HCPCS: 36415; 80048; 80053; 80306; 80320; 81000; 82150; 82947; 82962; 83690; 83735; 84100; 84484; 85025; 87040; 87081; 90686; 93005; 94660

== ENCOUNTER → 2018-09-15 | Outpatient (CLI) | payer OTHER ==
[~2018-09-15] MED LIST changes: +INSU100I23 SQ; +INSU100I29 SQ; +LISI10TA2 PO
[2018-09-15 15:30] LABS: ABG BASE EXCESS 2.9 MMOL/L (-2.5-2.5); ABG OXYGEN SATURATION 95 % (94-100); ABG PCO2 44 MMHG (35-45); ABG PH 7.41 (7.37-7.43); ABG PO2 70 MMHG (79-93); ABG TCO2 28.6 MMOL/L (21.0-31.0)
[2018-09-15 15:31] LABS: ALLENS TEST YES-POS; INSPIRED O2 ROOM AIR; PATIENT TEMP 98.7; VENTILATOR NO
== END ==
LOC: LAB 14:49
PROVIDERS: ATTEND Nurse Practitioner Family
DX: G47.33 Obstructive sleep apnea (adult) (pediatric) (principal); G47.50 Parasomnia, unspecified; G47.10 Hypersomnia, unspecified; I49.5 Sick sinus syndrome; E66.9 Obesity, unspecified; Z72.0 Tobacco use
CPT/HCPCS: 82805

== ENCOUNTER 2018-09-21 12:06 | Outpatient (RCR) | payer OTHER ==
[2018-10-02] MEDS ORDERED: fentaNYL INJECTION 100 MCG/2 ML AMP ONE (10:20)
[2018-10-02] MEDS ORDERED: NS IV 1000 ML 0 ML ONE (10:20)
[2018-10-02] MEDS ORDERED: HEParin 1000 UNIT/ML (10ML VIAL) FOR BOLUS ONE (10:20)
[2018-10-02] MEDS ORDERED: LIDOCAINE 1% INJ 20 ML 20 ML VIAL ONE (10:20)
[2018-10-02] MEDS ORDERED: MIDAZOLAM 5 MG/5 ML (VERSED) VIAL ONE (10:20)
[2018-10-02] MEDS ORDERED: HEParin (CATH LAB) 1,000 ML IV ONE (10:21)
[2018-10-02] MEDS ORDERED: NITRO DRIP 25000 MCG/D5W 0 ML IV ONE (10:21)
[2018-10-13] MEDS ORDERED: CYCL10TA9 PO (03:15)
[2018-10-13] MEDS ORDERED: TRAM-42 PO (03:15)
== END 2018-12-20 | disposition home or self-care (01) ==
LOC: CARD 12:06
PROVIDERS: ATTEND Internal Medicine Cardiovascular Disease
DX: I10 Essential (primary) hypertension (principal); I49.5 Sick sinus syndrome; E66.9 Obesity, unspecified; Z68.43 Body mass index [BMI] 50.0-59.9, adult; Z72.0 Tobacco use
CPT/HCPCS: 93225; 93226

== ENCOUNTER 2018-10-13 00:12 | Emergency (ER) | payer OTHER ==
[~2018-10-13] VITALS: Ht 175.3 cm; Wt 171.5 kg
[2018-10-13] MEDS ORDERED: ORPHENADRINE 60 MG/2 ML (NORFLEX) AMP IM ONE (02:15)
[2018-10-13] MEDS ORDERED: KETOROLAC 30 MG/ML VIAL IM ONE (02:15)
[2018-10-13] MEDS ORDERED: RX-TRAMADOL 50 MG (ULTRAM) TAB PPK#4 PO STA (03:11)
[2018-10-13] MEDS ORDERED: CYCL10TA9 PO (03:15)
[2018-10-13] MEDS ORDERED: TRAM-42 PO (03:15)
--- NOTE | 2018-10-13 03:16 | ED Back Pain ---
General Chief Complaint: Back Problems Stated Complaint: BACK PAIN Nursing Triage Note: AMBULATORY TO ED WITH C/O LOW BACK PAIN ON AND OFF FOR A WEEK. TRIED HEATING PAD, ICY HOT, ICE PACKS WITH NO RELIEF, NO MEDICATIONS TRIED FOR PAIN. Nursing Sepsis Screen: No Definite Risk Source of Information: Patient Exam Limitations: No Limitations History of Present Illness Date Seen by Provider: Oct 13, 2018 Time Seen by Provider: 02:04 Initial Comments This 28-year-old gentleman presents to the emergency room with complaints of lower back pain intermittently 1 week. He denies any prior episodes. He denies any injury or strain that triggered the pain. He has been using heating pad, ice pack, massage, Tylenol, ibuprofen, and topical medications. Without significant relief. He denies any bowel or bladder dysfunction or leg weakness. He has some mild numbness in the proximal left thigh. Symptoms have worsened tonight. Allergies and Home Medications Allergies Coded Allergies: Penicillins (Verified Allergy, Unknown, 08/11/18) Home Medications Cyclobenzaprine HCl 10 Mg Tablet, 10 MG PO TID PRN for SPASMS Prescribed by: SAQIB DOUGLAS on 10/13/18314 Insulin Detemir 100 Unit/1 Ml Insuln.pen, 20 UNIT SQ BID Prescribed by: RUSSELL YBARRA on 08/30/18 1042 Insulin Lispro 100 Unit/1 Ml Insuln.pen, 10 UNIT SQ TIDAC Prescribed by: RUSSELL YBARRA on 08/30/18 1042 Lisinopril 10 Mg Tablet, 10 MG PO DAILY Prescribed by: ALLEN DOUGLAS on 08/31/18 1413 Metformin HCl 500 Mg Tablet, 500 MG PO BID Prescribed by: AMBIKA WISEMAN on 08/12/18 0107 Tramadol HCl 50 Mg Tablet, 50 MG PO QID PRN for PAIN-MODERATE TO SEVERE Prescribed by: SAQIB DOUGLAS on 10/13/18314 Patient Home Medication List Home Medication List Reviewed: Yes Review of Systems Constitutional: no symptoms reported EENTM: no symptoms reported Respiratory: no symptoms reported Cardiovascular: no symptoms reported Gastrointestinal: no symptoms reported Genitourinary: no symptoms reported Musculoskeletal: see HPI Skin: no symptoms reported Psychiatric/Neurological: See HPI Past Mvrnfhv-Gbgipj-Ysnfyg Hx Past Med/Social Hx: Reviewed Nursing Past Med/Soc Hx Patient Social History Alcohol Use: Rarely Uses Recreational Drug Use: No Type Used: Cigarettes 2nd Hand Smoke Exposure: Yes Recent Foreign Travel: No Contact w/Someone Who Travel: No Recent Infectious Disease Expo: No Recent Hopitalizations: No Immunizations Up To Date Tetanus Booster (TDap): Unknown PED Vaccines UTD: Yes Seasonal Allergies Seasonal Allergies: Yes Past Medical History Surgeries: No Respiratory: Yes Asthma Currently Using CPAP: No Currently Using BIPAP: No Cardiac: Yes Hypertension Neurological: No Sexually Transmitted Disease: No HIV/AIDS: No Genitourinary: No Gastrointestinal: No Musculoskeletal: Yes Degenerate Disk Disease, Chronic Back Pain Endocrine: Yes Hypothyroidsim, Diabetes, Non-Insulin dep HEENT: Yes Loss of Vision: Bilateral Hearing Impairment: Denies Cancer: No Psychosocial: Yes Anxiety, Bipolar, Depression Integumentary: No Blood Disorders: No Adverse Reaction/Blood Tranf: No Family Medical History Osteoporosis Seizure disorder G8 SISTER, Onset:Unknown No Pertinent Family Hx Physical Exam Vital Signs Vital Signs - First Documented 10/13/18 10/13/18 01:09 03:25 Temp 98.8 Pulse 89 Resp 19 B/P (MAP) 145/100 (115) Pulse Ox 99 Capillary Refill : Less Than 3 Seconds Height, Weight, BMI Height: 5'9.00" Weight: 378lbs. 0oz. 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 Pain was improving. Take- home packet of tramadol was dispensed for further breakthrough pain. He was advised to follow-up with his primary care provider for further assessment and consideration of spine imaging. Return precautions reviewed. Patient advised to work on weight reduction to reduce strain on his back. Departure Impression Primary Impression: Low back pain Qualified Codes: M54.42 - Lumbago with sciatica, left side Disposition: HOME, SELF-CARE Condition: Improved Departure-Patient Inst. Decision time for Depature: 03:13 Referrals: [facility] (PCP) Primary Care Physician MAYUR MCDERMOTT (Family) Primary Care Physician Patient Instructions: Low Back Pain (DC) Add. Discharge Instructions: For primary pain control take ibuprofen up to 600 mg every 6 hours as needed. Add Tylenol (acetaminophen) up to 1000 mg every 6 hours as needed. For pain not controlled by [id number] medications, take Ultram (tramadol) as prescribed. Gradually increase level of activity as pain allows. Follow-up with your primary care provider for further assessment and treatment. Imaging of your lower back may eventually be desired if not improving. All discharge instructions reviewed with patient and/or family. Voiced understanding. Scripts Cyclobenzaprine HCl (Cyclobenzaprine HCl) 10 Mg Tablet 10 MG PO TID PRN for SPASMS, #10 TAB Prov: SAQIB CUETO MD 10/13/18 Tramadol HCl (Ultram) 50 Mg Tablet 50 MG PO QID PRN for PAIN-MODERATE TO SEVERE, #10 TAB Prov: SAQIB CUETO MD 10/13/18 Copy Copies To 1: DIAMANTE FLETCHER JOSHUA T MD Oct 13, 2018 03:16
[2018-10-13 03:25] VITALS: BP 144/98
== END 2018-10-13 03:25 | disposition home or self-care (01) ==
LOC: EDUNIT# 00:12 → ER 00:14
DX: M54.5 Low back pain (principal); J45.909 Unspecified asthma, uncomplicated; I10 Essential (primary) hypertension; E03.9 Hypothyroidism, unspecified; E11.9 Type 2 diabetes mellitus without complications; F41.9 Anxiety disorder, unspecified; F31.9 Bipolar disorder, unspecified; Z88.0 Allergy status to penicillin; Z79.4 Long term (current) use of insulin; Z77.22 Contact with and (suspected) exposure to environmental tobacco smoke (acute) (chronic)
CPT/HCPCS: 99284

== ENCOUNTER → 2018-10-15 | Outpatient (CLI) | payer OTHER ==
[~2018-10-15] MED LIST changes: +CYCL10TA9 PO; +TRAM-42 PO
--- NOTE | 2018-10-15 12:35 | Diagnostic Imaging Report ---
INDICATION: Chronic low back pain. TIME OF EXAM: 12:24 p.m. FINDINGS: AP and lateral views of the lumbar spine were obtained. Curvature and alignment are normal. Vertebral body heights and disc spaces are well maintained. No fracture or subluxation is identified. IMPRESSION: No acute bony abnormality is detected. Dictated by: Dictated on workstation # [id number]
--- NOTE | 2018-10-15 12:36 | Diagnostic Imaging Report ---
INDICATION: Back pain. TIME OF EXAM: 12:19 p.m. FINDINGS: Frontal and lateral views of the thoracic spine demonstrate mild right convexity thoracic scoliotic curvature. There is normal kyphotic curvature. Vertebral body heights are maintained. No acute compression fracture is seen. Pedicles and paraspinous line are intact. IMPRESSION: Mild right convexity thoracic scoliotic curvature. No acute bony abnormality is detected. Dictated by: Dictated on workstation # [id number]
== END ==
LOC: RAD 12:09
PROVIDERS: ATTEND Nurse Practitioner Primary Care
DX: M54.42 Lumbago with sciatica, left side (principal); G89.29 Other chronic pain; M43.9 Deforming dorsopathy, unspecified
CPT/HCPCS: 72070; 72100

== ENCOUNTER 2021-10-15 00:15 | Emergency (ER) | payer SELFPAY ==
[~2021-10-15 00:15] MED LIST changes: +CYCL10TA25 PO; -CYCL10TA9 PO; -LISI10TA2 PO; +LISI10TA25 PO
[2021-10-15 00:18] VITALS: BP 167/131
[2021-10-15] MEDS ORDERED: NS IV 1000 ML 1,000 ML IV SCH (00:30)
[2021-10-15] MEDS ORDERED: NS IV 1000 ML 1,000 ML IV ONE (00:30)
[2021-10-15] MEDS ORDERED: ACETAMINOPHEN 500 MG TAB (TYLENOL) PO ONE (00:30)
[2021-10-15] MEDS ORDERED: ONDANSETRON 4 MG/2 ML (SDV) Z0FRAN IVP ONE (00:30)
[2021-10-15] MEDS ORDERED: fentaNYL INJ 100 MCG/2 ML AMP ONE (00:33)
--- NOTE | 2021-10-15 00:33 | ED General ---
General Chief Complaint: Glucose Problems Stated Complaint: HIGH BLOOD SUGAR Nursing Triage Note: TO ED [facility]IA [facility] TO ROOM 7 FROM HOME. PT HX DM. TOOK INSULILN AT 2200 AFTER HIS HOME GLUCOSE MONITOR READ IN THE "800s". C/O GENERALIZED PAIN THIS EVENING. PT CRYING, SCREAMING, AND WRITHING IN BED ON ARRIVAL. Source of Information: Patient, EMS Exam Limitations: No Limitations History of Present Illness Date Seen by Provider: Oct 15, 2021 Time Seen by Provider: 00:15 Initial Comments Patient to the ER by EMS from his home with chief complaint of flank pain arm and leg cramping frequency of urine and nausea. No fevers chills chest pain diarrhea or constipation. Patient has been diabetic since 2018, 4 years ago. Has been in DKA few years ago. He does not test for ketones in his urine. He takes 60 units of long-acting insulin and 50 units of short acting insulin with meals. He took an extra 20 units of long-acting insulin tonight. He remarks that his blood sugar was over 800 on his glucometer. EMS found his blood sugar to be 400 and when he arrived he was in the 200s on the ER glucometer. Is complaining of cramping pains in his legs. He has not taken anything for the pain. Symptoms started today. EMS remarks when they picked him up and brought him and he was not writhing from cramping pain until after he arrived to the ER. Allergies and Home Medications Allergies Coded Allergies: Penicillins (Verified Allergy, Unknown, 08/11/18) Patient Home Medication List Home Medication List Reviewed: Yes Cyclobenzaprine HCl (Cyclobenzaprine HCl) 10 Mg Tablet, 10 MG PO TID PRN for SPASMS Prescribed by: SAQIB DOUGLAS on 10/13/18 0315 Insulin Detemir (Levemir Flextouch) 100 Unit/1 Ml Insuln.pen, 20 UNIT SQ BID Prescribed by: RUSSELL YBARRA on 08/30/18 1042 Insulin Lispro (Humalog Kwikpen) 100 Unit/1 Ml Insuln.pen, 10 UNIT SQ TIDAC Prescribed by: RUSSELL YBARRA on 08/30/18 1042 Lisinopril (Lisinopril) 10 Mg Tablet, 10 MG PO DAILY Prescribed by: ALLEN DOUGLAS on 08/31/18 1413 Metformin HCl (Metformin HCl) 500 Mg Tablet, 500 MG PO BID Prescribed by: AMBIKA WISEMAN on 08/12/18 0107 Tramadol HCl (Ultram) 50 Mg Tablet, 50 MG PO QID PRN for PAIN-MODERATE TO SEVERE Prescribed by: SAQIB DOUGLAS on 10/13/18 0315 Review of Systems Review of Systems Constitutional: No chills, No diaphoresis EENTM: No ear discharge, No ear pain Respiratory: No cough, No short of breath Cardiovascular: No palpitations Gastrointestinal: No see HPI; abdominal pain; No constipation, No diarrhea, No dysphagia; nausea; No vomiting Genitourinary: No discharge, No dysuria, No frequency Musculoskeletal: No back pain, No joint pain Skin: No pruritus, No rash All Other Systems Reviewed Negative Unless Noted: Yes Past Arbqcqg-Tiaqwc-Opaskw Hx Patient Social History Tobacco Use?: No Use of E-Cig and/or Vaping dev: No Substance use?: No Immunizations Up To Date Tetanus Booster (TDap): Unknown PED Vaccines UTD: Yes Seasonal Allergies Seasonal Allergies: Yes Past Medical History Surgeries: No Respiratory: Yes Asthma Currently Using CPAP: No Currently Using BIPAP: No Cardiac: Yes Hypertension Neurological: No Sexually Transmitted Disease: No HIV/AIDS: No Genitourinary: No Gastrointestinal: No Musculoskeletal: Yes Degenerate Disk Disease, Chronic Back Pain Endocrine: Yes Hypothyroidsim, Diabetes, Non-Insulin dep HEENT: Yes Loss of Vision: Bilateral Hearing Impairment: Denies Cancer: No Psychosocial: Yes Anxiety, Bipolar, Depression Integumentary: No Blood Disorders: No Adverse Reaction/Blood Tranf: No Family Medical History Osteoporosis Seizure disorder G8 SISTER, Onset:Unknown No Pertinent Family Hx Physical Exam Vital Signs Vital Signs - First Documented 10/15/21 00:18 Temp 36.9 Pulse 130 Resp 30 B/P (MAP) 167/131 (143) Pulse Ox 96 O2 Delivery Room Air Capillary Refill : Less Than 3 Seconds Height, Weight, BMI Height: 5'9.00" Weight: 378lbs. 0oz. [id number]; 57.5 BMI Method:Stated General Appearance: Anxious, Obese Eyes: Bilateral Eye Normal Inspection, Bilateral Eye PERRL, Bilateral Eye EOMI HEENT: PERRL/EOMI, TMs Normal, Normal ENT Inspection, Pharynx Normal; No Moist Mucous Membranes Neck: Full Range of Motion, Normal Inspection Respiratory: Lungs Clear, Normal Breath Sounds, No Accessory Muscle Use, No Respiratory Distress Cardiovascular: Regular Rate, Rhythm, No Edema, Normal Peripheral Pulses Gastrointestinal: Normal Bowel Sounds, Non Tender, Soft Extremity: Normal Capillary Refill, Normal Inspection, Normal Range of Motion, No Pedal Edema Neurologic/Psychiatric: Alert, Oriented x3, Normal Mood/Affect Skin: Normal Color, Warm/Dry Progress/Results/Core Measures Suspected Sepsis SIRS Temperature: Pulse: 130 Respiratory Rate: 30 Laboratory Tests 10/15/21 00:46: White Blood Count 19.7H Blood Pressure 167 /131 Mean: 143 Laboratory Tests 10/15/21 00:46: Creatinine 1.09, Platelet Count 413H, Total Bilirubin 0.4 Results/Orders Lab Results Laboratory Tests Test 10/15/21 00:46 10/15/21 01:39 Range/Units White Blood Count 19.7 H 4.3-11.0 10^3/uL Red Blood Count 5.74 H 4.30-5.52 10^6/uL Hemoglobin 11.2 L 13.3-17.7 g/dL Hematocrit 40 40-54 % Mean Corpuscular Volume 69 L 80-99 fL Mean Corpuscular Hemoglobin 20 L 25-34 pg Mean Corpuscular Hemoglobin Concent 28 L 32-36 g/dL Red Cell Distribution Width 19.7 H 10.0-14.5 % Platelet Count 413 H 130-400 10^3/uL Mean Platelet Volume 10.4 9.0-12.2 fL Immature Granulocyte % (Auto) 1 % Neutrophils (%) (Auto) 68 42-75 % Lymphocytes (%) (Auto) 22 12-44 % Monocytes (%) (Auto) 7 0-12 % Eosinophils (%) (Auto) 2 0-10 % Basophils (%) (Auto) 0 0-10 % Neutrophils # (Auto) 13.4 H 1.8-7.8 10^3/uL Lymphocytes # (Auto) 4.3 H 1.0-4.0 10^3/uL Monocytes # (Auto) 1.4 H 0.0-1.0 10^3/uL Eosinophils # (Auto) 0.4 H 0.0-0.3 10^3/uL Basophils # (Auto) 0.1 0.0-0.1 10^3/uL Immature Granulocyte # (Auto) 0.1 0.0-0.1 10^3/uL Neutrophils % (Manual) 60 % Lymphocytes % (Manual) 27 % Monocytes % (Manual) 8 % Eosinophils % (Manual) 3 % Band Neutrophils 2 % Anisocytosis SLIGHT Sodium Level 133 L 135-145 MMOL/L Potassium Level 3.9 3.6-5.0 MMOL/L Chloride Level 97 L 98-107 MMOL/L Carbon Dioxide Level 22 21-32 MMOL/L Anion Gap 14 5-14 MMOL/L Blood Urea Nitrogen 13 7-18 MG/DL Creatinine 1.09 0.60-1.30 MG/DL Estimat Glomerular Filtration Rate 93 BUN/Creatinine Ratio 12 Glucose Level 232 H 70-105 MG/DL Calcium Level 9.5 8.5-10.1 MG/DL Corrected Calcium 9.4 8.5-10.1 MG/DL Magnesium Level 1.9 1.6-2.4 MG/DL Total Bilirubin 0.4 0.1-1.0 MG/DL Aspartate Amino Transf (AST/SGOT) 11 5-34 U/L Alanine Aminotransferase (ALT/SGPT) 24 0-55 U/L Alkaline Phosphatase 96 40-136 U/L C-Reactive Protein High Sensitivity 3.06 H 0.00-0.50 MG/DL Total Protein 8.2 6.4-8.2 GM/DL Albumin 4.1 3.2-4.5 GM/DL Beta-Hydroxybutyrate (Chem panel) 0.06 0.00-0.27 MMOL/L Serum Alcohol < 10 <10 MG/DL Urine Color YELLOW Urine Clarity CLEAR Urine pH 6.5 5-9 Urine Specific [place] <=1.005 1.016-1.022 Urine Protein NEGATIVE NEGATIVE Urine Glucose (UA) 3+ H NEGATIVE Urine Ketones NEGATIVE NEGATIVE Urine Nitrite NEGATIVE NEGATIVE Urine Bilirubin NEGATIVE NEGATIVE Urine Urobilinogen 0.2 < = 1.0 MG/DL Urine Leukocyte Esterase NEGATIVE NEGATIVE Urine RBC (Auto) NEGATIVE NEGATIVE Urine RBC NONE /HPF Urine WBC NONE /HPF Urine Squamous Epithelial Cells 0-2 /HPF Urine Crystals NONE /LPF Urine Bacteria NEGATIVE /HPF Urine Casts NONE /LPF Urine Mucus NEGATIVE /LPF Urine Culture Indicated NO Urine Opiates Screen NEGATIVE NEGATIVE Urine Oxycodone Screen NEGATIVE NEGATIVE Urine Methadone Screen NEGATIVE NEGATIVE Urine Propoxyphene Screen NEGATIVE NEGATIVE Urine Barbiturates Screen NEGATIVE NEGATIVE Ur Tricyclic Antidepressants Screen NEGATIVE NEGATIVE Urine Phencyclidine Screen NEGATIVE NEGATIVE Urine Amphetamines Screen NEGATIVE NEGATIVE Urine Methamphetamines Screen NEGATIVE NEGATIVE Urine Benzodiazepines Screen NEGATIVE NEGATIVE Urine Cocaine Screen NEGATIVE NEGATIVE Urine Cannabinoids Screen POSITIVE H NEGATIVE My Orders Orders - CISCO TERRY Ed Iv/Invasive Line Start (10/15/21 00:23) Ns Iv 1000 Ml (Sodium Chloride 0.9%) (10/15/21 00:30) Ns Iv 1000 Ml (Sodium Chloride 0.9%) (10/15/21 00:30) Ondansetron Injection (Zofran Injectio (10/15/21 00:30) Cbc With Automated Diff (10/15/21:23) Comprehensive Metabolic Panel (10/15/21:23) Magnesium (10/15/21:23) Hs C Reactive Protein (10/15/21:23) Ua Culture If Indicated (10/15/21:23) Drug Screen Stat (Urine) (10/15/21:23) Alcohol (10/15/21:23) Acetaminophen Tablet (Tylenol Tablet) (10/15/21 00:30) Beta Hydroxybutyrate (10/15/21 00:23) Accucheck Stat ONCE (10/15/21 00:26) Fentanyl Inj (Sublimaze Injection) (10/15/21 00:33) Fentanyl Inj (Sublimaze Injection) (10/15/21 00:45) Manual Differential (10/15/21 00:46) Medications Given in ED Current Medications Medications Dose Ordered Sig/Felisha Route Start Time Stop Time Status Last Admin Dose Admin Fentanyl Citrate 50 mcg ONCE ONCE IVP 10/15/21 00:45 10/15/21 00:46 DC 10/15/21 00:45 50 MCG Ondansetron HCl 8 mg ONCE ONCE IVP 10/15/21 00:30 10/15/21 00:31 DC 10/15/21 00:47 8 MG Sodium Chloride 1,000 ml @ 0 mls/hr Q0M ONCE IV 10/15/21 00:30 10/15/21 00:31 DC 10/15/21 00:47 1,000 MLS/HR Vital Signs/I&O 10/15/21 2 00:18 00:26 Temp 36.9 Pulse 130 Resp 30 B/P (MAP) 167/131 (143) Pulse Ox 96 O2 Delivery Room Air Room Air Capillary Refill : Less Than 3 Seconds Blood Pressure Mean: 143 Progress Note #1: Time: 00:33 Progress Note We will give him 50 of fentanyl some Tylenol warm blankets for his cramping. Will check labs and electrolytes. Look for DKA or HHS. Progress Note #2: Time: 01:29 Progress Note The patient's pain has abated. He is smiling stating he feels much better. He has about 200 cc of his liter of fluids in. We will let him finish this liter of fluids. There is no gap, beta hydroxybutyrate elevation, renal failure or other worrisome elevations. The moderate leukocytosis is of uncertain clinical significance. We will let him go home and encouraged him to follow-up with primary care. Departure Impression Primary Impression: Hyperglycemia Additional Impression: Muscle cramps at night Disposition: 01 HOME, SELF-CARE Condition: Stable Departure-Patient Inst. Decision time for Depature: 03:10 Referrals: GARY WOODRUFF APRN (PCP) Primary Care Physician MAYUR MCDERMOTT (Family) Primary Care Physician Patient Instructions: High Blood Sugar, Adult ED, Using Heat for Pain, Diabetes and Diet Add. Discharge Instructions: Heating pads for cramps. Drink some sugar-free sports drinks such as Gatorade 0. Tylenol 1000 mg every 8 hours. Follow-up with your primary care doctor. All discharge instructions reviewed with patient and/or family. Voiced understanding. CISCO TERRY Oct 15, 2021 00:33
[2021-10-15] MEDS ORDERED: fentaNYL INJ 100 MCG/2 ML AMP IVP ONE (00:45)
[2021-10-15 00:55] LABS: BASOPHILS # (AUTO) 0.1 10^3/uL (0.0-0.1); BASOPHILS % (AUTO) 0 % (0-10); EOSINOPHILS # (AUTO) 0.4 10^3/uL (0.0-0.3); EOSINOPHILS % (AUTO) 2 % (0-10); HEMATOCRIT 40 % (40-54); HEMOGLOBIN 11.2 g/dL (13.3-17.7); LYMPHOCYTES # (AUTO) 4.3 10^3/uL (1.0-4.0); LYMPHOCYTES % (AUTO) 22 % (12-44); MEAN CORPUSCULAR HEMOGLOBIN 20 pg (25-34); MEAN CORPUSCULAR HGB CONC 28 g/dL (32-36); MEAN CORPUSCULAR VOLUME 69 fL (80-99); MEAN PLATELET VOLUME 10.4 fL (9.0-12.2); MONOCYTES # (AUTO) 1.4 10^3/uL (0.0-1.0); MONOCYTES % (AUTO) 7 % (0-12); NEUTROPHILS # (AUTO) 13.4 10^3/uL (1.8-7.8); NEUTROPHILS % (AUTO) 68 % (42-75); PLATELET COUNT 413 10^3/uL (130-400); WHITE BLOOD COUNT 19.7 10^3/uL (4.3-11.0)
[2021-10-15 01:05] LABS: ALBUMIN 4.1 GM/DL (3.2-4.5); CHLORIDE 97 MMOL/L (98-107); POTASSIUM 3.9 MMOL/L (3.6-5.0); SODIUM 133 MMOL/L (135-145)
[2021-10-15 01:06] LABS: CALCIUM 9.5 MG/DL (8.5-10.1)
[2021-10-15 01:08] LABS: GLUCOSE 232 MG/DL (70-105); TOTAL PROTEIN 8.2 GM/DL (6.4-8.2)
[2021-10-15 01:09] LABS: BILIRUBIN,TOTAL 0.4 MG/DL (0.1-1.0); CARBON DIOXIDE 22 MMOL/L (21-32)
[2021-10-15 01:11] LABS: ALKALINE PHOSPHATASE 96 U/L (40-136); CREATININE SERUM 1.09 MG/DL (0.60-1.30); GFR ESTIMATED 93
[2021-10-15 01:12] LABS: BUN/CREATININE RATIO 12
[2021-10-15 01:14] LABS: ALANINE AMINOTRANSFERASE 24 U/L (0-55)
[2021-10-15 01:15] LABS: MAGNESIUM 1.9 MG/DL (1.6-2.4)
[2021-10-15 01:23] LABS: BAND NEUTROPHILS 2 %; EOSINOPHILS % (MANUAL) 3 %; LYMPHOCYTES % (MANUAL) 27 %; MONOCYTES % (MANUAL) 8 %; NEUTROPHILS % (MANUAL) 60 %
[2021-10-15 01:24] LABS: ANISOCYTOSIS SLIGHT
[2021-10-15 01:44] LABS: BILIRUBIN,URINE NEGATIVE (NEGATIVE); CLARITY,URINE CLEAR; COLOR,URINE YELLOW; GLUCOSE, URINE (UA) 3+ (NEGATIVE); KETONES,URINE NEGATIVE (NEGATIVE); LEUKOCYTE ESTERASE ,URINE NEGATIVE (NEGATIVE); NITRITE,URINE NEGATIVE (NEGATIVE); PH,URINE 6.5 (5-9); PROTEIN,URINE NEGATIVE (NEGATIVE)
[2021-10-15 01:54] LABS: BACTERIA,URINE NEGATIVE /HPF; SQUAMOUS EPITHELIAL CELL,UR 0-2 /HPF
[2021-10-15 02:24] LABS: AMPHETAMINE SCREEN, URINE NEGATIVE (NEGATIVE); BARBITURATE SCREEN URINE NEGATIVE (NEGATIVE); BENZODIAZEPINES SCREEN URINE NEGATIVE (NEGATIVE); CANNABINOID SCREEN, URINE POSITIVE (NEGATIVE); COCAINE SCREEN URINE NEGATIVE (NEGATIVE); METHADONE STAT NEGATIVE (NEGATIVE); METHAMPHETAMINE SCREEN URINE S NEGATIVE (NEGATIVE); OPIATE SCREEN URINE NEGATIVE (NEGATIVE); OXYCODONE STAT NEGATIVE (NEGATIVE); PROPOXYPHENE STAT NEGATIVE (NEGATIVE); TRICYCLIC ANTIDEPRESSANTS SCRE NEGATIVE (NEGATIVE)
== END 2021-10-15 03:25 | disposition home or self-care (01) ==
LOC: EDUNIT# 00:15 → ER 00:16
DX: E11.65 Type 2 diabetes mellitus with hyperglycemia (principal); R25.2 Cramp and spasm; E66.9 Obesity, unspecified; J45.909 Unspecified asthma, uncomplicated; I10 Essential (primary) hypertension; Z68.43 Body mass index [BMI] 50.0-59.9, adult; Z79.84 Long term (current) use of oral hypoglycemic drugs; Z79.899 Other long term (current) drug therapy
CPT/HCPCS: 80053; 80306; 81000; 82010; 83735; 85007; 85027; 86141; G0480; 36415; 80320; 82947

== ENCOUNTER 2021-11-07 17:45 | Emergency (ER) | payer MEDICAID ==
[~2021-11-07] VITALS: Ht 175 cm; Wt 165.0 kg
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
[2021-11-07 18:24] LABS: BASOPHILS % (AUTO) 0 % (0-10); EOSINOPHILS # (AUTO) 0.3 10^3/uL (0.0-0.3); EOSINOPHILS % (AUTO) 2 % (0-10); HEMATOCRIT 36 % (40-54); HEMOGLOBIN 10.2 g/dL (13.3-17.7); LYMPHOCYTES % (AUTO) 22 % (12-44); MEAN CORPUSCULAR HEMOGLOBIN 20 pg (25-34); MEAN CORPUSCULAR HGB CONC 28 g/dL (32-36); MEAN CORPUSCULAR VOLUME 69 fL (80-99); MEAN PLATELET VOLUME 10.2 fL (9.0-12.2); MONOCYTES % (AUTO) 7 % (0-12); NEUTROPHILS # (AUTO) 9.2 10^3/uL (1.8-7.8); NEUTROPHILS % (AUTO) 68 % (42-75); PLATELET COUNT 349 10^3/uL (130-400); WHITE BLOOD COUNT 13.5 10^3/uL (4.3-11.0)
[2021-11-07 18:37] LABS: ALBUMIN 3.7 GM/DL (3.2-4.5); POTASSIUM 3.8 MMOL/L (3.6-5.0)
[2021-11-07 18:38] LABS: CALCIUM 9.3 MG/DL (8.5-10.1)
[2021-11-07 18:39] LABS: TOTAL PROTEIN 7.3 GM/DL (6.4-8.2)
[2021-11-07 18:41] LABS: BILIRUBIN,TOTAL 0.4 MG/DL (0.1-1.0)
[2021-11-07 18:41] LABS: BILIRUBIN,URINE NEGATIVE (NEGATIVE); CLARITY,URINE CLEAR; COLOR,URINE YELLOW; GLUCOSE, URINE (UA) 3+ (NEGATIVE); KETONES,URINE NEGATIVE (NEGATIVE); LEUKOCYTE ESTERASE ,URINE NEGATIVE (NEGATIVE); NITRITE,URINE NEGATIVE (NEGATIVE); PH,URINE 6.5 (5-9); PROTEIN,URINE NEGATIVE (NEGATIVE)
[2021-11-07 18:43] LABS: CREATININE SERUM 0.92 MG/DL (0.60-1.30)
[2021-11-07 18:57] LABS: BACTERIA,URINE NEGATIVE /HPF
[2021-11-07] MEDS ORDERED: NS IV 1000 ML 1,000 ML IV SCH (19:15)
[2021-11-07] MEDS ORDERED: KETOROLAC 30 MG/ML VIAL IVP ONE (19:30)
[2021-11-07 20:33] VITALS: BP 141/102
== END 2021-11-07 20:37 | disposition home or self-care (01) ==
LOC: EDUNIT# 17:45 → ER 17:46
DX: G40.909 Epilepsy, unspecified, not intractable, without status epilepticus (principal); E11.65 Type 2 diabetes mellitus with hyperglycemia; I10 Essential (primary) hypertension; F17.210 Nicotine dependence, cigarettes, uncomplicated; Z79.84 Long term (current) use of oral hypoglycemic drugs
CPT/HCPCS: 36415; 80053; 81000; 82947; 85025

== ENCOUNTER 2021-11-25 18:16 | Emergency (ER) | payer MEDICAID ==
[~2021-11-25] VITALS: Ht 175.3 cm; Wt 163.3 kg
[2021-11-25 18:45] LABS: BASOPHILS # (AUTO) 0.1 10^3/uL (0.0-0.1); BASOPHILS % (AUTO) 0 % (0-10); EOSINOPHILS # (AUTO) 0.2 10^3/uL (0.0-0.3); EOSINOPHILS % (AUTO) 1 % (0-10); HEMATOCRIT 40 % (40-54); LYMPHOCYTES # (AUTO) 3.5 10^3/uL (1.0-4.0); LYMPHOCYTES % (AUTO) 18 % (12-44); MEAN CORPUSCULAR HEMOGLOBIN 19 pg (25-34); MEAN CORPUSCULAR HGB CONC 28 g/dL (32-36); MEAN CORPUSCULAR VOLUME 70 fL (80-99); MEAN PLATELET VOLUME 10.5 fL (9.0-12.2); MONOCYTES # (AUTO) 1.2 10^3/uL (0.0-1.0); MONOCYTES % (AUTO) 6 % (0-12); NEUTROPHILS % (AUTO) 74 % (42-75); PLATELET COUNT 416 10^3/uL (130-400)
[2021-11-25] MEDS ORDERED: inSUlin (REGULAR) HUMAN 1 UNIT/0.01 ML (CHARGE PER UNIT) IV ONE ×2 (18:45→20:30)
[2021-11-25] MEDS ORDERED: LACTATED RINGERS 1,000 ML IV SCH ×3 (18:45→20:30)
--- NOTE | 2021-11-25 18:45 | ED General ---
General Chief Complaint: Glucose Problems Stated Complaint: HIGH BLOOD SUGAR AND KETONES Nursing Triage Note: PT AMB TO RM 6 W REPORTS OF BEING OUT OF INSULIN X3 DAYS. PT WAS AT [facility], ADVISED TO GO TO ED FOR FURTHER EVALUATION AND TX D/T GLUCOSE 400+ AND KETONES IN URINE. PT A&OX4, DENIES PAIN, C/O DRY MOUTH AND GENERALIZED UNWELL FEELING. Source of Information: Patient Exam Limitations: No Limitations History of Present Illness Date Seen by Provider: Nov 25, 2021 Time Seen by Provider: 18:42 Initial Comments To ER by private vehicle from [facility] with reports of hyperglycemia with ketones in his urine. He presented to [facility] for reports of feeling dehydrated, diffuse cramps, hyperglycemia. He just moved here from [place]. He ran out of his insulin 3 days ago. He is an insulin-depe ndent diabetic taking 50 units of Levemir twice daily and takes lispro on a sliding scale. He denies any nausea or vomiting. He smokes 1/2 pack of cigarettes per day and medical marijuana for diagnosis of PTSD, schizoaffective disorder, anxiety, depression, paranoia. Medical problems include insulin- dependent diabetes and hypertension. Timing/Duration: 1-2 Days Severity: Moderate Associated Systoms: Denies Symptoms Allergies and Home Medications Allergies Coded Allergies: Penicillins (Verified Allergy, Unknown, 08/11/18) Patient Home Medication List Home Medication List Reviewed: Yes Cyclobenzaprine HCl (Cyclobenzaprine HCl) 10 Mg Tablet, 10 MG PO TID PRN for SPASMS Prescribed by: SAQIB DOUGLAS on 10/13/18 0315 Insulin Detemir (Levemir Flextouch) 100 Unit/1 Ml Insuln.pen, 20 UNIT SQ BID Prescribed by: RUSSELL YBARRA on 08/30/18 1042 Insulin Determir (Levemir) 1,000 Units/10 Ml Soln, 50 UNITS SQ BID Prescribed by: STANFORD CORREA on 11/25/212116 Insulin Lispro (Humalog Kwikpen) 100 Unit/1 Ml Insuln.pen, 10 UNIT SQ TIDAC Prescribed by: RUSSELL YBARRA on 08/30/18 1042 Insulin Lispro (Insulin Lispro) 100 Unit/1 Ml Vial, 10 UNIT SQ SLIDING/SCALE Prescribed by: STANFORD CORREA on 11/25/212116 Lisinopril (Lisinopril) 10 Mg Tablet, 10 MG PO DAILY Prescribed by: ALLEN DOUGLAS on 08/31/18 1413 Metformin HCl (Metformin HCl) 500 Mg Tablet, 500 MG PO BID Prescribed by: AMBIKA WISEMAN on 08/12/18 010 Tramadol HCl (Ultram) 50 Mg Tablet, 50 MG PO QID PRN for PAIN-MODERATE TO SEVERE Prescribed by: SAQIB DOUGLAS on 10/13/18 0315 Review of Systems Review of Systems Constitutional: see HPI EENTM: see HPI Respiratory: no symptoms reported Cardiovascular: no symptoms reported Genitourinary: no symptoms reported Musculoskeletal: no symptoms reported Skin: no symptoms reported Psychiatric/Neurological: No Symptoms Reported Hematologic/Lymphatic: No Symptoms Reported Immunological/Allergic: no symptoms reported Past Bjfsrma-Clrfsu-Qbcxaf Hx Patient Social History Tobacco Use?: Yes Tobacco type used: Cigarettes Smoking Status: Current Everyday Smoker Use of E-Cig and/or Vaping dev: No Substance use?: Yes Substance type: Marijuana Substance frequency: Daily Alcohol Use?: No Immunizations Up To Date Tetanus Booster (TDap): Unknown PED Vaccines UTD: Yes Seasonal Allergies Seasonal Allergies: Yes Past Medical History Surgery/Hospitalization HX: pmh: seizure, dm2, htn Surgeries: No Respiratory: Yes Asthma Currently Using CPAP: No Currently Using BIPAP: No Cardiac: Yes Hypertension Neurological: No Sexually Transmitted Disease: No HIV/AIDS: No Genitourinary: No Gastrointestinal: No Musculoskeletal: Yes Degenerate Disk Disease, Chronic Back Pain Endocrine: Yes Hypothyroidsim, Diabetes, Non-Insulin dep HEENT: Yes Loss of Vision: Bilateral Hearing Impairment: Denies Cancer: No Psychosocial: Yes Anxiety, Bipolar, Depression Integumentary: No Blood Disorders: No Adverse Reaction/Blood Tranf: No Family Medical History Osteoporosis Seizure disorder G8 SISTER, Onset:Unknown No Pertinent Family Hx Physical Exam Vital Signs Vital Signs - First Documented 11/25/21 18:28 Temp 36.2 Pulse 122 Resp 22 B/P (MAP) 131/74 (93) Pulse Ox 93 O2 Delivery Room Air Capillary Refill : Less Than 3 Seconds Height, Weight, BMI Height: 5'9.00" Weight: 378lbs. 0oz. 171.009773gr; 53.00 BMI Method:Stated General Appearance: No Apparent Distress, WD/WN, Chronically ill, Obese Eyes: Bilateral Eye Normal Inspection, Bilateral Eye PERRL, Bilateral Eye EOMI Neck: Full Range of Motion, Normal Inspection Respiratory: No Accessory Muscle Use, No Respiratory Distress Cardiovascular: Normal Peripheral Pulses, Tachycardia Gastrointestinal: Normal Bowel Sounds, Non Tender, Soft Extremity: Normal Capillary Refill, Normal Inspection Neurologic/Psychiatric: Alert, Oriented x3 Skin: Normal Color, Warm/Dry Progress/Results/Core Measures Suspected Sepsis SIRS Temperature: Pulse: 122 Respiratory Rate: 22 Laboratory Tests 11/25/21 18:30: White Blood Count 19.0H Blood Pressure 131 /74 Mean: 93 Laboratory Tests 11/25/21 18:30: Creatinine 1.15, Platelet Count 416H, Total Bilirubin 0.4 Results/Orders Lab Results Laboratory Tests Test 11/25/21 18:30 11/25/21 18:33 11/25/21 20:08 11/25/21 20:12 Range/Units White Blood Count 19.0 H 4.3-11.0 10^3/uL Red Blood Count 5.71 H 4.30-5.52 10^6/uL Hemoglobin 11.0 L 13.3-17.7 g/dL Hematocrit 40 40-54 % Mean Corpuscular Volume 70 L 80-99 fL Mean Corpuscular Hemoglobin 19 L 25-34 pg Mean Corpuscular Hemoglobin Concent 28 L 32-36 g/dL Red Cell Distribution Width 18.6 H 10.0-14.5 % Platelet Count 416 H 130-400 10^3/uL Mean Platelet Volume 10.5 9.0-12.2 fL Immature Granulocyte % (Auto) 1 % Neutrophils (%) (Auto) 74 42-75 % Lymphocytes (%) (Auto) 18 12-44 % Monocytes (%) (Auto) 6 0-12 % Eosinophils (%) (Auto) 1 0-10 % Basophils (%) (Auto) 0 0-10 % Neutrophils # (Auto) 14.0 H 1.8-7.8 10^3/uL Lymphocytes # (Auto) 3.5 1.0-4.0 10^3/uL Monocytes # (Auto) 1.2 H 0.0-1.0 10^3/uL Eosinophils # (Auto) 0.2 0.0-0.3 10^3/uL Basophils # (Auto) 0.1 0.0-0.1 10^3/uL Immature Granulocyte # (Auto) 0.2 H 0.0-0.1 10^3/uL Neutrophils % (Manual) 78 % Lymphocytes % (Manual) 12 % Monocytes % (Manual) 5 % Eosinophils % (Manual) 2 % Reactive Lymphocytes 3 % Blood Morphology Comment NORMAL Sodium Level 129 L 135-145 MMOL/L Potassium Level 3.9 3.6-5.0 MMOL/L Chloride Level 93 L 98-107 MMOL/L Carbon Dioxide Level 23 21-32 MMOL/L Anion Gap 13 5-14 MMOL/L Blood Urea Nitrogen 11 7-18 MG/DL Creatinine 1.15 0.60-1.30 MG/DL Estimat Glomerular Filtration Rate 87 BUN/Creatinine Ratio 10 Glucose Level 496 *H 70-105 MG/DL Calcium Level 9.2 8.5-10.1 MG/DL Corrected Calcium 9.4 8.5-10.1 MG/DL Total Bilirubin 0.4 0.1-1.0 MG/DL Aspartate Amino Transf (AST/SGOT) 14 5-34 U/L Alanine Aminotransferase (ALT/SGPT) 20 0-55 U/L Alkaline Phosphatase 102 40-136 U/L Total Protein 7.2 6.4-8.2 GM/DL Albumin 3.7 3.2-4.5 GM/DL Beta-Hydroxybutyrate (Chem panel) 1.28 H 0.00-0.27 MMOL/L Procalcitonin 0.05 <0.10 NG/ML Glucometer 461 *H 393 H 70-110 MG/DL Urine Color YELLOW Urine Clarity CLEAR Urine pH 6.0 5-9 Urine Specific [place] 1.010 L 1.016-1.022 Urine Protein NEGATIVE NEGATIVE Urine Glucose (UA) 3+ H NEGATIVE Urine Ketones 1+ H NEGATIVE Urine Nitrite NEGATIVE NEGATIVE Urine Bilirubin NEGATIVE NEGATIVE Urine Urobilinogen 0.2 < = 1.0 MG/DL Urine Leukocyte Esterase NEGATIVE NEGATIVE Urine RBC (Auto) NEGATIVE NEGATIVE Urine RBC NONE /HPF Urine WBC 0-2 /HPF Urine Squamous Epithelial Cells 0-2 /HPF Urine Renal Epithelial Cells NONE /HPF Urine Crystals NONE /LPF Urine Bacteria NEGATIVE /HPF Urine Casts NONE /LPF Urine Mucus NEGATIVE /LPF Urine Culture Indicated NO Urine Opiates Screen NEGATIVE NEGATIVE Urine Oxycodone Screen NEGATIVE NEGATIVE Urine Methadone Screen NEGATIVE NEGATIVE Urine Propoxyphene Screen NEGATIVE NEGATIVE Urine Barbiturates Screen NEGATIVE NEGATIVE Ur Tricyclic Antidepressants Screen NEGATIVE NEGATIVE Urine Phencyclidine Screen NEGATIVE NEGATIVE Urine Amphetamines Screen NEGATIVE NEGATIVE Urine Methamphetamines Screen NEGATIVE NEGATIVE Urine Benzodiazepines Screen NEGATIVE NEGATIVE Urine Cocaine Screen NEGATIVE NEGATIVE Urine Cannabinoids Screen POSITIVE H NEGATIVE My Orders Orders - STANFORD CORREA MAINFRAME SOFTWARE DEVELOPER Beta Hydroxybutyrate (11/25/21 18:37) Cbc With Automated Diff (11/25/21 18:37) Comprehensive Metabolic Panel (11/25/21 18:37) Ua Culture If Indicated (11/25/21 18:37) Ed Iv/Invasive Line Start (11/25/21 18:37) Lactated Ringers (Lr 1000 Ml Iv Solution (11/25/21 18:45) Lactated Ringers (Lr 1000 Ml Iv Solution (11/25/21 18:45) Insulin (Regular) Human (Novolin R (Per (11/25/21 18:45) Manual Differential (11/25/21 18:30) Procalcitonin (Pct) (11/25/21 19:46) Chest 1 View, Ap/Pa Only (11/25/21 19:46) Drug Screen Stat (Urine) (11/25/21 19:53) Accucheck Stat ONCE (11/25/21 20:07) Insulin (Regular) Human (Novolin R (Per (11/25/21 20:30) Lactated Ringers (Lr 1000 Ml Iv Solution (11/25/21 20:30) Insulin Determir (Per Unit) (Levemir (Pe (11/25/21 20:30) Accucheck Stat ONCE (11/25/21 21:14) Medications Given in ED Current Medications Medications Dose Ordered Sig/Felisha Route Start Time Stop Time Status Last Admin Dose Admin Insulin Human Regular 6 unit ONCE ONCE IV 11/25/21 20:30 11/25/21 20:31 DC 11/25/21 20:24 6 UNIT Insulin Human Regular 10 unit ONCE ONCE IV 11/25/21 18:45 11/25/21 18:46 DC 11/25/21 18:43 10 UNIT Vital Signs/I&O 11/25/21 18:28 Temp 36.2 Pulse 122 Resp 22 B/P (MAP) 131/74 (93) Pulse Ox 93 O2 Delivery Room Air Capillary Refill : Less Than 3 Seconds Blood Pressure Mean: 93 Point of Care Testing Finger Stick Blood Glucose: 461 Blood Glucose Action Taken: Jovon SKINNER NOTIFIED Departure Communication (Admissions) Family Conversation [id number]-his last blood sugar was 393, it was rechecked after an additional 6 units of insulin and found to have gone up to 397. He was drinking a red fruity drink though he states it was sugar free. NAME: MAYUR TARIQ [facility] REC#: [id number] PT STATUS: REG ER : 1990 PHYSICIAN: STANFORD CORREA APRN ADMIT DATE: 11/25/21/ER Draft Date of Exam:11/25/21 CHEST 1 VIEW, AP/PA ONLY EXAMINATION: Chest 1 view HISTORY: Leucocytosis COMPARISON: 08/11/2018 FINDINGS: The lungs are clear without edema or pneumonia. No pleural effusion or pneumothorax. Heart size is normal. IMPRESSION: 1. Clear lungs. Dictated on workstation # [id number] Dict: 11/25/212002 Trans: 11/25/212004 [facility] [id number] Interpreted by: FITO ZENG MD Electronically signed by: Impression Primary Impression: Hyperglycemia due to diabetes mellitus Disposition: HOME, SELF-CARE Condition: Stable Departure-Patient Inst. Decision time for Depature: 21:15 Referrals: GARY WOODRUFF APRN (PCP/Family) Primary Care Physician Patient Instructions: Type 2 Diabetes (DC) Add. Discharge Instructions: 1. Return to ER for any concerns. Medication as directed. 1. Return to ER for any concerns. All discharge instructions reviewed with patient and/or family. Voiced understanding. Scripts Insulin Lispro (Insulin Lispro) 100 Unit/1 Ml Vial 10 UNIT SQ SLIDING/SCALE, #1 EA Prov: STANFORD CORREA APRN 11/25/21 Insulin Determir (Levemir) 1,000 Units/10 Ml Soln 50 UNITS SQ BID, #1 EA Prov: STANFORD CORREA APRN 11/25/21 STANFORD CORREA APRN Nov 25, 2021 18:45
[2021-11-25 19:03] LABS: ALBUMIN 3.7 GM/DL (3.2-4.5); POTASSIUM 3.9 MMOL/L (3.6-5.0)
[2021-11-25 19:05] LABS: CALCIUM 9.2 MG/DL (8.5-10.1)
[2021-11-25 19:06] LABS: TOTAL PROTEIN 7.2 GM/DL (6.4-8.2)
[2021-11-25 19:08] LABS: BILIRUBIN,TOTAL 0.4 MG/DL (0.1-1.0); EOSINOPHILS % (MANUAL) 2 %; LYMPHOCYTES % (MANUAL) 12 %; MONOCYTES % (MANUAL) 5 %; NEUTROPHILS % (MANUAL) 78 %; RBC MORPH NORMAL; REACTIVE LYMPHOCYTES 3 %
[2021-11-25 19:09] LABS: CREATININE SERUM 1.15 MG/DL (0.60-1.30)
--- NOTE | 2021-11-25 20:05 | Diagnostic Imaging Report ---
EXAMINATION: Chest 1 view HISTORY: Leucocytosis COMPARISON: 08/11/2018 FINDINGS: The lungs are clear without edema or pneumonia. No pleural effusion or pneumothorax. Heart size is normal. IMPRESSION: 1. Clear lungs. Dictated by: Dictated on workstation # [id number]
[2021-11-25 20:20] LABS: BACTERIA,URINE NEGATIVE /HPF; BILIRUBIN,URINE NEGATIVE (NEGATIVE); CLARITY,URINE CLEAR; COLOR,URINE YELLOW; GLUCOSE, URINE (UA) 3+ (NEGATIVE); KETONES,URINE 1+ (NEGATIVE); LEUKOCYTE ESTERASE ,URINE NEGATIVE (NEGATIVE); NITRITE,URINE NEGATIVE (NEGATIVE); PROTEIN,URINE NEGATIVE (NEGATIVE); SQUAMOUS EPITHELIAL CELL,UR 0-2 /HPF; WBC,URINE 0-2 /HPF
[2021-11-25 20:27] LABS: AMPHETAMINE SCREEN, URINE NEGATIVE (NEGATIVE); BARBITURATE SCREEN URINE NEGATIVE (NEGATIVE); BENZODIAZEPINES SCREEN URINE NEGATIVE (NEGATIVE); CANNABINOID SCREEN, URINE POSITIVE (NEGATIVE); COCAINE SCREEN URINE NEGATIVE (NEGATIVE); METHADONE STAT NEGATIVE (NEGATIVE); METHAMPHETAMINE SCREEN URINE S NEGATIVE (NEGATIVE); OPIATE SCREEN URINE NEGATIVE (NEGATIVE); OXYCODONE STAT NEGATIVE (NEGATIVE); PROPOXYPHENE STAT NEGATIVE (NEGATIVE); TRICYCLIC ANTIDEPRESSANTS SCRE NEGATIVE (NEGATIVE)
[2021-11-25] MEDS ORDERED: INSU100V39 SQ (21:17)
[2021-11-25] MEDS ORDERED: INSU100V5 SQ (21:17)
[2021-11-25 21:38] VITALS: BP 135/76
== END 2021-11-25 21:38 | disposition home or self-care (01) ==
LOC: EDUNIT# 18:16 → ER 18:20
DX: E11.65 Type 2 diabetes mellitus with hyperglycemia (principal); E66.9 Obesity, unspecified; F17.210 Nicotine dependence, cigarettes, uncomplicated; Z68.43 Body mass index [BMI] 50.0-59.9, adult; Z79.4 Long term (current) use of insulin
CPT/HCPCS: 36415; 71045; 80053; 80306; 81000; 82010; 82947; 84145; 85007; 85027; 96361; 96372; 96374; 96376